=== PATIENT | female | born 1965 ===

== ENCOUNTER 2017-06-17 10:51 | Inpatient (IN) | payer BC ==
[2017-06-17 12:22] VITALS: BMI 38.4
[2017-06-17] MEDS ORDERED: HEPARIN-NS 5,000 UNITS/500 ML 5,000 UNIT/500 ML BAG IV ONE (13:04)
[2017-06-17] MEDS ORDERED: ceFAZolin 1 gm in NS 1 GM/100 ML BAG IVPB ONE (13:53)
[2017-06-17] MEDS: ceFAZolin 1 gm in NS 0 GM/0 ML BAG IVPB ONE ×2 (13:58→14:35)
[2017-06-17] MEDS ORDERED: Propofol 10 mg/ml Inj (20 ML) ONE ×2 (14:25→14:56)
[2017-06-17] MEDS ORDERED: Midazolam 2 MG/2 ML VIAL ONE (14:25)
[2017-06-17] MEDS ORDERED: Lidocaine 1% Inj (20ml) INFIL ONE (14:31)
[2017-06-17] MEDS ORDERED: Neostigmine Methylsulfate 3mg/3ml Syringe IV ONE (16:33)
[2017-06-17] MEDS ORDERED: Sodium Chloride 0.9% 1,000 ML IV SCH (16:45)
[2017-06-17] MEDS ORDERED: Oxycodone/Acetaminophen 5/325 mg Tab PO PRN (16:47)
[2017-06-17] MEDS: HYDROmorphone 0.5 mg/0.5 ml ISec IVP PRN ×2 (16:56→16:57)
[2017-06-17 18:46] VITALS: RESP 20
[2017-06-17] MEDS: Enoxaparin 30 mg Syringe SC SCH (22:58)
[2017-06-18] MEDS: (Novolin R) Insulin Human Regular 100 units/ml vial SC SCH ×3 (00:01→12:26)
--- NOTE | 2017-06-18 03:02 | OP ---
PROCEDURE DATE: 06/17/2017 PREOPERATIVE DIAGNOSIS: Chronic renal failure. POSTOPERATIVE DIAGNOSIS: Chronic renal failure. PROCEDURE PERFORMED: Left arm basilic vein transposition. SURGEON: Ceferino Shetty MD ANESTHESIA: General. BLOOD LOSS: 40 mL. POSTOPERATIVE CONDITION: Stable. INDICATIONS FOR SURGERY: This is a 52-year-old female with chronic renal failure, now undergoing left arm basilic vein transposition after preoperative vein management. GROSS FINDINGS: The basilic vein was split, so the mid portion was somewhat smaller, however, upon dilatation with pressurized saline, it dilated to an adequate size. At the conclusion of procedure, there was a nice thrill and bruit within the transposed basilic vein. DESCRIPTION OF PROCEDURE: The patient was taken to the operating room and general anesthesia was administered. The left arm was then prepped and draped. Incision was made in the left axilla and carried distally. The basilic vein was identified, dissected free. Through serial incisions, it was removed into the elbow. It was flushed with heparinized saline and marked with a marking pen and wrapped with wet saline gauze. The wounds were irrigated with saline. Advancement flap closures were performed by mobilizing his multiple layers of Monocryl, subcuticular Monocryl, and skin clips. An incision was made over the distal brachial artery, it was dissected free and looped with a vessel loop. Heparin was administered. A subcutaneous tunnel was created from the brachial incision to the axilla and the basilic vein was transposed beneath the skin and tunneled into the brachial and distal anastomosis accomplished using 6-0 Prolene suture. The wound was hemostatic. On removal of the clamps, there was a nice thrill on the vein. The wound was irrigated with saline. The brachial incision and axillary incision were closed with Monocryl and skin clips. The patient tolerated the procedure well, returned to recovery room in stable condition. Ceferino Shetty MD
[2017-06-18 08:05] VITALS: PULSE 98; TEMP 98.2; O2SAT 94
[2017-06-18 08:06] LABS: BASO % 0.1 % (0.0-2.0); HEMOGLOBIN 10.9 g/dL (11.0-16.0); LYMPH # 1.1 K/uL (1.0-4.3); LYMPH % 7.6 % (20.0-40.0); MEAN CELL VOLUME 85.1 fL (81.0-99.0); MEAN CORPUSCULAR HEMOGLOBIN 29.1 pg (27.0-31.0); MEAN CORPUSCULAR HGB CONC 34.2 g/dL (33.0-37.0); MEAN PLATELET VOLUME 9.1 fL (7.2-11.7); MONO # 0.2 K/uL (0.0-0.8); MONO % 1.8 % (0.0-10.0); NEUT # 12.6 K/uL (1.8-7.0); NEUT % 90.5 % (50.0-75.0); PLATELET COUNT 392 K/uL (130-400); RBC 3.74 Mil/uL (3.80-5.20); RED CELL DISTRIBUTION WIDTH 13.3 % (11.5-14.5); WHITE BLOOD COUNT 13.9 K/uL (4.8-10.8)
[2017-06-18 08:28] LABS: CALCIUM 8.4 mg/dl (8.6-10.4)
[2017-06-18 09:15] LABS: HYPOCHROMIC SLIGHT; LARGE PLATELETS PRESENT; LYMPHOCYTE 8 % (20-40); MONOCYTE 1 % (0-10); NEUTROPHIL 91 % (50-75); PLATELET ESTIMATE NORMAL (NORMAL); TOTAL CELLS COUNTED 100
[2017-06-18] MEDS: Enoxaparin 30 mg Syringe SC SCH ×2 (10:18→10:21)
[2017-06-18 12:21] VITALS: BP 141/76
--- NOTE | 2017-06-18 14:53 | CP.PCM.CON ---
History of Present Illness - History of Present Illness History of Present Illness: 52 y/o WF admitted for AV fistula creation. Complicated by high BSs >400. GFR has been < 15 and AV access was advised; not on dialysis yet. PMH: DIABETIC NEPHROPATHY CKD 5 HTN DL MULTIPLE SCLEROSIS PSH: AV FISTULA LEFT ANKLE REPAIR X 2 Review of Systems - Constitutional Constitutional: Fatigue, Weakness - EENT Eyes: absent: As Per HPI, Blind Spots, Blurred Vision, Change in Vision, Decreased Night Vision, Diplopia, Discharge, Dry Eye, Exophthalmos, Floaters, Irritation, Itchy Eyes, Loss of Peripheral Vision, Pain, Photophobia, Requires Corrective Lenses, Sees Flashes, Spots in Vision, Tunnel Vision, Other Visual Disturbances, Loss of Vision, Other Ears: absent: As Per HPI, Decreased Hearing, Ear Discharge, Ear Pain, Tinnitus, Abnormal Hearing, Disequilibrium, Dizziness, Other Nose/Mouth/Throat: absent: As Per HPI, Epistaxis, Nasal Congestion, Nasal Discharge, Nasal Obstruction, Nasal Trauma, Nose Pain, Post Nasal Drip, Sinus Pain, Sinus Pressure, Bleeding Gums, Change in Voice, Dental Pain, Dry Mouth, Dysphagia, Halitosis, Hoarsness, Lip Swelling, Mouth Lesions, Mouth Pain, Odynophagia, Sore Throat, Throat Swelling, Tongue Swelling, Facial Pain, Neck Pain, Neck Mass, Other - Cardiovascular Cardiovascular: Dyspnea on Exertion, Pedal Edema - Respiratory Respiratory: Cough, Dyspnea on Exertion - Gastrointestinal Gastrointestinal: Nausea - Genitourinary Genitourinary: As Per HPI - Musculoskeletal Musculoskeletal: Muscle Cramps, Muscle Weakness - Integumentary Integumentary: Dry Skin - Neurological Neurological: Focal Weakness, Weakness Past Patient History - Past Medical History & Family History Past Medical History?: Yes Past Family History: Reviewed and not pertinent - Past Social History Smoking Status: Former Smoker Chewing Tobacco Use: No Cigar Use: No Alcohol: None Drugs: Denies Home Situation {Lives}: With Family - CARDIAC Hx Cardiac Disorders: Yes Hx Hypercholesterolemia: Yes Hx Hypertension: Yes - PULMONARY Hx Respiratory Disorders: No - NEUROLOGICAL Hx Neurological Disorder: Yes Hx Multiple Sclerosis: Yes - HEENT Hx HEENT Problems: No - RENAL Hx Chronic Kidney Disease: Yes (Renal insufficiency) Hx Dialysis: No - ENDOCRINE/METABOLIC Hx Diabetes Mellitus Type 2: Yes - HEMATOLOGICAL/ONCOLOGICAL Hx Blood Disorders: Yes - INTEGUMENTARY Hx Dermatological Problems: No - MUSCULOSKELETAL/RHEUMATOLOGICAL Hx Arthritis: Yes (l ankle hx orif; toe prob) - GASTROINTESTINAL Hx Gastrointestinal Disorders: No (constipation) - GENITOURINARY/GYNECOLOGICAL Hx Genitourinary Disorders: No - PSYCHIATRIC Hx Psychophysiologic Disorder: No Hx Substance Use: No - SURGICAL HISTORY Hx Surgeries: Yes Hx Section: Yes (x2) Hx Open Reduction Internal Fixation: Yes (left ankle) Other/Comment: av shunt insertion 06/17/17 - ANESTHESIA Hx Anesthesia: Yes Hx Anesthesia Reactions: No Hx Malignant Hyperthermia: No Has any member of the family had a problem w/ anesthesia?: No Meds Allergies/Adverse Reactions: Allergies Allergy/AdvReac Type Severity Reaction Status Date / Time No Known Allergies Allergy Verified 11/04/14 15:00 - Medications Medications: Current Medications Docusate Sodium (Colace) 100 mg PO BID [facility] Last Admin: 06/18/17 10:18 Dose: 100 mg Enoxaparin Sodium (Lovenox) 30 mg SC 1000,2200 [facility] Last Admin: 06/18/17 10:21 Dose: Not Given Sodium Chloride (Sodium Chloride 0.9%) 1,000 mls @ 75 mls/hr IV .[id number] [facility] Cefazolin Sodium 1,000 mg/ (Sodium Chloride) 100 mls @ 100 mls/hr IVPB Q8H [facility] PRN Reason: Protocol Last Admin: 06/18/17 10:00 Dose: 100 mls/hr Insulin Human Regular (Novolin R) 0 unit SC ACHS [facility] PRN Reason: Protocol Last Admin: 06/18/17 12:26 Dose: 10 unit Oxycodone/Acetaminophen (Percocet 5/325 Mg Tab) 2 tab PO Q4H PRN PRN Reason: pain Stop: 06/20/17 16:48 Last Admin: 06/18/17 00:52 Dose: 2 tab Pneumococcal Polyvalent Vaccine (Pneumovax 23 Vaccine) 0.5 ml IM .ONCE ONE Stop: 06/19/17 08:01 Physical Exam - Constitutional Appears: No Acute Distress, Chronically Ill - Head Exam Head Exam: ATRAUMATIC, NORMAL INSPECTION - Eye Exam Eye Exam: EOMI, Normal appearance - Neck Exam Neck exam: Positive for: Normal Inspection. Negative for: Tenderness - Respiratory Exam Respiratory Exam: Clear to Auscultation Bilateral, NORMAL BREATHING PATTERN - Cardiovascular Exam Cardiovascular Exam: REGULAR RHYTHM, +S1 - GI/Abdominal Exam GI & Abdominal Exam: Soft. absent: Tenderness - Extremities Exam Extremities exam: Positive for: normal inspection. Negative for: tenderness - Neurological Exam Neurological exam: Alert, Oriented x3 - Skin Skin Exam: Dry, Warm Results - Vital Signs Recent Vital Signs: Last Vital Signs Temp 98.2 F 06/18/17 08:03 Pulse 98 H 06/18/17 08:03 Resp 20 06/18/17 08:03 BP 141/76 06/18/17 11:45 Pulse Ox 94 L 06/18/17 08:03 - Labs Result Diagrams: 06/18/17 07:57 06/18/17 07:57 Labs: Laboratory Results - last 24 hr 06/17/17 06/18/17 06/18/17 20:48 07:57 07:57 WBC 13.9 H RBC 3.74 L Hgb 10.9 L Hct 31.8 L MCV 85.1 MCH 29.1 MCHC 34.2 RDW 13.3 Plt Count 392 MPV 9.1 Neut % (Auto) 90.5 H Lymph % (Auto) 7.6 L [place] % (Auto) 1.8 Eos % (Auto) 0.0 Baso % (Auto) 0.1 Neut # (Auto) 12.6 H Lymph # (Auto) 1.1 [place] # (Auto) 0.2 Eos # (Auto) 0.0 Baso # (Auto) 0.0 Neutrophils % (Manual) 91 H Lymphocytes % (Manual) 8 L Monocytes % (Manual) 1 Platelet Estimate Normal Large Platelets Present Hypochromasia (manual) Slight Sodium 132 Potassium 4.6 Chloride 93 L Carbon Dioxide 23 Anion Gap 21 H BUN 73 H Creatinine 4.6 H Est GFR ( Amer) 12 Est GFR (Non-Af Amer) 10 POC Glucose (mg/dL) 398 H Random Glucose 499 H* D Calcium 8.4 L 06/18/17 08:08 WBC RBC Hgb Hct MCV MCH MCHC RDW Plt Count MPV Neut % (Auto) Lymph % (Auto) [place] % (Auto) Eos % (Auto) Baso % (Auto) Neut # (Auto) Lymph # (Auto) [place] # (Auto) Eos # (Auto) Baso # (Auto) Neutrophils % (Manual) Lymphocytes % (Manual) Monocytes % (Manual) Platelet Estimate Large Platelets Hypochromasia (manual) Sodium Potassium Chloride Carbon Dioxide Anion Gap BUN Creatinine Est GFR ( Amer) Est GFR (Non-Af Amer) POC Glucose (mg/dL) 400 H* Random Glucose Calcium Assessment & Plan (1) CKD (chronic kidney disease) stage 5, GFR less than 15 ml/min Status: Acute (2) Essential (primary) hypertension Status: Acute (3) Multiple sclerosis Status: Acute - Assessment and Plan (Free Text) Plan: control BSs likely discharge soon; plan on dialysis when AV F matures if uremia presents would need dialysis cath for dialysis initiation
[2017-06-19] MEDS ORDERED: Pneumococcal 23-Valent Vaccine IM ONE (08:00)
== END 2017-06-18 15:56 | disposition home or self-care (01) | DRG 982 ==
LOC: C.SDS 10:51 → C.9S 16:47 → C.3T 17:52
PROVIDERS: ADMIT Surgery; ATTEND Surgery
PROC: 05SC0ZZ Reposition Left Basilic Vein, Open Approach (ICD-10-PCS; principal; 2017-06-17 13:00)
DX: I12.0 Hypertensive chronic kidney disease with stage 5 chronic kidney disease or end stage renal disease (principal); N18.5 Chronic kidney disease, stage 5; E11.22 Type 2 diabetes mellitus with diabetic chronic kidney disease; E11.21 Type 2 diabetes mellitus with diabetic nephropathy; G35 Multiple sclerosis; E78.00 Pure hypercholesterolemia, unspecified; Z87.891 Personal history of nicotine dependence

== ENCOUNTER 2017-08-28 09:20 | Inpatient (IN) | payer BC ==
[2017-08-28 09:24] VITALS: BMI 36.8
[2017-08-28 10:12] LABS: BASO # 0.1 K/uL (0.0-0.2); BASO % 0.5 % (0.0-2.0); EOS # 0.2 K/uL (0.0-0.7); EOS % 2.2 % (0.0-4.0); HEMOGLOBIN 11.1 g/dL (11.0-16.0); LYMPH # 2.9 K/uL (1.0-4.3); LYMPH % 25.9 % (20.0-40.0); MEAN CORPUSCULAR HEMOGLOBIN 28.5 pg (27.0-31.0); MEAN CORPUSCULAR HGB CONC 34.9 g/dL (33.0-37.0); MEAN PLATELET VOLUME 8.7 fL (7.2-11.7); MONO # 0.6 K/uL (0.0-0.8); MONO % 5.4 % (0.0-10.0); NEUT # 7.3 K/uL (1.8-7.0); RBC 3.92 Mil/uL (3.80-5.20); RED CELL DISTRIBUTION WIDTH 12.6 % (11.5-14.5); WHITE BLOOD COUNT 11.1 K/uL (4.8-10.8)
[2017-08-28 10:14] LABS: MEAN CELL VOLUME 81.5 fL (81.0-99.0)
[2017-08-28 10:35] LABS: B-TYPE NATRIURETIC PEPTIDE 121 pg/mL (0-900); CK-MB 0.66 ng/mL (0.0-3.38)
[2017-08-28 10:39] LABS: ALB/GLOB RATIO 1.2 (1.0-2.1); ALBUMIN 4.1 g/dL (3.5-5.0); ALT/SGPT 23 U/L (9-52); AST/SGOT 19 U/L (14-36); BLOOD UREA NITROGEN 90 mg/dL (7-17); CALCIUM 9.6 mg/dl (8.6-10.4); GFR AFRICAN-AMERICAN 11; GFR NON-AFRICAN AMERICAN 9
--- NOTE | 2017-08-28 10:52 | RAD ---
HISTORY: SOB COMPARISON: Comparison made with chest radiograph dated 06/10/2017 TECHNIQUE: Chest PA and lateral FINDINGS: LUNGS: No active pulmonary disease. PLEURA: No significant pleural effusion identified. No pneumothorax apparent. CARDIOVASCULAR: Heart appears borderline enlarged. OSSEOUS STRUCTURES: No significant abnormalities. VISUALIZED UPPER ABDOMEN: Normal. OTHER FINDINGS: None. IMPRESSION: No active disease.
[2017-08-28] MEDS ORDERED: Sodium Chloride 0.9% 250 ML IV ONE ×2 (11:11→11:17)
[2017-08-28] MEDS ORDERED: (Novolin R) Insulin Human Regular 100 units/ml vial IV ONE (11:11)
[2017-08-28] MEDS ORDERED: (Novolin R) Insulin Human Regular 100 units/ml vial ONE (11:17)
--- NOTE | 2017-08-28 11:37 | CP.PCM.CON ---
History of Present Illness - History of Present Illness History of Present Illness: 52 y/o HF admitted with rising azotemia, inability to ambulate. s/p recent AV graft- 06/25 in anticipation of dialysis. Now GFR=9 PMH: DM 2 NEPHROTIC SYNDROME' HTN MULTIPLE SCLEROSIS PSH: AV GRAFT Review of Systems - Constitutional Constitutional: Lethargy, Weight Loss, Weakness - EENT Eyes: absent: As Per HPI, Blind Spots, Blurred Vision, Change in Vision, Decreased Night Vision, Diplopia, Discharge, Dry Eye, Exophthalmos, Floaters, Irritation, Itchy Eyes, Loss of Peripheral Vision, Pain, Photophobia, Requires Corrective Lenses, Sees Flashes, Spots in Vision, Tunnel Vision, Other Visual Disturbances, Loss of Vision, Other Ears: absent: As Per HPI, Decreased Hearing, Ear Discharge, Ear Pain, Tinnitus, Abnormal Hearing, Disequilibrium, Dizziness, Other Nose/Mouth/Throat: absent: As Per HPI, Epistaxis, Nasal Congestion, Nasal Discharge, Nasal Obstruction, Nasal Trauma, Nose Pain, Post Nasal Drip, Sinus Pain, Sinus Pressure, Bleeding Gums, Change in Voice, Dental Pain, Dry Mouth, Dysphagia, Halitosis, Hoarsness, Lip Swelling, Mouth Lesions, Mouth Pain, Odynophagia, Sore Throat, Throat Swelling, Tongue Swelling, Facial Pain, Neck Pain, Neck Mass, Other - Cardiovascular Cardiovascular: Dyspnea on Exertion, Lightheadedness - Respiratory Respiratory: Dyspnea on Exertion - Gastrointestinal Gastrointestinal: Nausea - Genitourinary Genitourinary: As Per HPI - Musculoskeletal Musculoskeletal: Abnormal Gait, Muscle Cramps, Muscle Weakness, Myalgias - Neurological Neurological: Weakness Past Patient History - Past Medical History & Family History Past Medical History?: Yes - Past Social History Smoking Status: Former Smoker Chewing Tobacco Use: No Cigar Use: No Alcohol: None Drugs: Denies Home Situation {Lives}: With Family - CARDIAC Hx Cardiac Disorders: Yes Hx Hypercholesterolemia: Yes Hx Hypertension: Yes - PULMONARY Hx Respiratory Disorders: No - NEUROLOGICAL Hx Neurological Disorder: Yes Hx Multiple Sclerosis: Yes - HEENT Hx HEENT Problems: No - RENAL Hx Chronic Kidney Disease: Yes (Renal insufficiency) Hx Dialysis: No - ENDOCRINE/METABOLIC Hx Diabetes Mellitus Type 2: Yes - HEMATOLOGICAL/ONCOLOGICAL Hx Blood Disorders: Yes - INTEGUMENTARY Hx Dermatological Problems: No - MUSCULOSKELETAL/RHEUMATOLOGICAL Hx Musculoskeletal Disorders: Yes Hx Arthritis: Yes (l ankle hx orif; toe prob) - GASTROINTESTINAL Hx Gastrointestinal Disorders: No (constipation) - GENITOURINARY/GYNECOLOGICAL Hx Genitourinary Disorders: No - PSYCHIATRIC Hx Psychophysiologic Disorder: No Hx Substance Use: No - SURGICAL HISTORY Hx Surgeries: Yes Hx Section: Yes (x2) Hx Open Reduction Internal Fixation: Yes (left ankle) Other/Comment: av shunt insertion 06/17/17 - ANESTHESIA Hx Anesthesia: Yes Hx Anesthesia Reactions: No Hx Malignant Hyperthermia: No Meds Allergies/Adverse Reactions: Allergies Allergy/AdvReac Type Severity Reaction Status Date / Time No Known Allergies Allergy Verified 08/28/17 09:23 - Medications Medications: Current Medications Sodium Chloride (Sodium Chloride 0.9%) 250 mls @ 250 mls/hr IV .Q1H ONE Stop: 08/28/17 12:10 Last Admin: 08/28/17 11:20 Dose: 250 mls/hr Physical Exam - Constitutional Appears: No Acute Distress, Chronically Ill - Head Exam Head Exam: ATRAUMATIC, NORMAL INSPECTION - Eye Exam Eye Exam: EOMI, Normal appearance - Neck Exam Neck exam: Positive for: Normal Inspection. Negative for: Tenderness - Respiratory Exam Respiratory Exam: Clear to Auscultation Bilateral, NORMAL BREATHING PATTERN - Cardiovascular Exam Cardiovascular Exam: REGULAR RHYTHM, +S1 - GI/Abdominal Exam GI & Abdominal Exam: Soft. absent: Tenderness - Extremities Exam Extremities exam: Positive for: normal inspection. Negative for: tenderness - Neurological Exam Neurological exam: CN II-XII Intact, Oriented x3 - Skin Skin Exam: Dry, Warm Results - Vital Signs Recent Vital Signs: Last Vital Signs Temp 98.6 F 08/28/17 09:24 Pulse 81 08/28/17 09:24 Resp 18 08/28/17 09:35 BP 138/69 08/28/17 09:24 Pulse Ox 100 08/28/17 09:35 - Labs Result Diagrams: 08/28/17 10:05 08/28/17 10:05 Labs: Laboratory Results - last 24 hr 08/28/17 08/28/17 10:05 10:05 WBC 11.1 H RBC 3.92 Hgb 11.1 Hct 31.9 L MCV 81.5 D MCH 28.5 MCHC 34.9 RDW 12.6 Plt Count 391 MPV 8.7 Neut % (Auto) 66.0 Lymph % (Auto) 25.9 [place] % (Auto) 5.4 Eos % (Auto) 2.2 Baso % (Auto) 0.5 Neut # (Auto) 7.3 H Lymph # (Auto) 2.9 [place] # (Auto) 0.6 Eos # (Auto) 0.2 Baso # (Auto) 0.1 Sodium 132 Potassium 3.2 L Chloride 85 L Carbon Dioxide 31 H Anion Gap 20 BUN 90 H Creatinine 4.9 H Est GFR ( Amer) 11 Est GFR (Non-Af Amer) 9 Random Glucose 489 H* Calcium 9.6 Total Bilirubin 0.4 AST 19 ALT 23 Alkaline Phosphatase 201 H Total Creatine Kinase 101 CK-MB (Mass) 0.66 Troponin I < 0.0120 NT-Pro-B Natriuret Pep 121 Total Protein 7.5 Albumin 4.1 Globulin 3.4 Albumin/Globulin Ratio 1.2 Assessment & Plan (1) Type 2 diabetes mellitus with diabetic nephropathy Status: Acute (2) End stage renal disease Status: Acute (3) Nephrotic syndrome Status: Acute (4) Multiple sclerosis Status: Acute - Assessment and Plan (Free Text) Plan: Unclear if symptoms are from MS vs uremia GFR very low and will initiate dialysis recommend neuro eval
--- NOTE | 2017-08-28 12:13 | C.PDOC ---
History Of Present Illness 52 year old female, whose PMHx includes Diabetes, Hypertension, and Multiple Sclerosis, presents to the ED for evaluation of shortness of breath which began one week ago. Patient states her symptoms are not constant, but occur when she exerts herself, even when "talking a lot." Patient admits she does not regulaly check her sugar level. Patient spoke to her Stave Cutting Supervisor, Dr. Smith, who instructed her to present to the ED for further evaluation. She denies fever, chills, chest pain, abdominal pain, leg pain/swelling . Time Seen by Provider: 08/28/17 09:33 Chief Complaint (Nursing): Shortness Of Breath History Per: Patient History/Exam Limitations: no limitations Onset/Duration Of Symptoms: Days (one week ), Intermittent Episodes Current Symptoms Are (Timing): Still Present Quality: denies: "Pain" Exacerbating Factor(s): Exertion Current Respiratory Medications: See Home Med List Associated Symptoms: denies: Fever, Chills, Chest Pain Additional History Per: Patient Past Medical History Reviewed: Historical Data, Nursing Documentation, Vital Signs Vital Signs: Last Vital Signs Temp 98.1 F 08/28/17 16:07 Pulse 76 08/28/17 16:07 Resp 20 08/28/17 16:07 BP 137/69 08/28/17 16:07 Pulse Ox 96 08/28/17 16:07 - Medical History PMH: Arthritis (l ankle hx orif; toe prob), Diabetes, Fractures (left ankle), HTN, Hypercholesterolemia, Multiple Sclerosis, Peripheral Edema (not at present) , Chronic Kidney Disease (Renal insufficiency) Surgical History: No Surg Hx Family History: States: Unknown Family Hx - Social History Hx Alcohol Use: No Hx Substance Use: No - Immunization History Hx Tetanus Toxoid Vaccination: No Hx Influenza Vaccination: No Hx Pneumococcal Vaccination: No Review Of Systems Constitutional: Negative for: Fever, Chills Cardiovascular: Negative for: Chest Pain Respiratory: Positive for: Shortness of Breath Gastrointestinal: Negative for: Abdominal Pain Musculoskeletal: Negative for: Leg Pain Skin: Negative for: Other (leg swelling ) Physical Exam - Physical Exam Appears: Non-toxic, No Acute Distress, Other (obese ) Skin: Normal Color, Warm, Dry Head: Atraumatic, Normacephalic Eye(s): bilateral: Normal Inspection, EOMI Nose: Normal Oral Mucosa: Moist Neck: Normal ROM, Supple Chest: Symmetrical, No Deformity, No Tenderness Cardiovascular: Rhythm Regular Respiratory: Normal Breath Sounds, No Rales, No Rhonchi, No Wheezing, Other ( speaking in full sentences) Gastrointestinal/Abdominal: Soft, No Tenderness Extremity: Normal ROM, Capillary Refill (less than 2 seconds ), No Swelling, Other ((+) av shunt with pulse) Extremity: Bilateral: Normal Color And Temperature Neurological/Psych: Oriented x3, Normal Speech, Normal Cognition ED Course And Treatment - Laboratory Results Result Diagrams: 08/28/17 10:05 08/28/17 10:05 ECG: Interpreted By Me, Viewed By Me ECG Rhythm: Sinus Rhythm Interpretation Of ECG: Normal Sinus Rhythm at rate 73bpm. Non-specific changes noted. Rate From EC O2 Sat by Pulse Oximetry: 100 (on RA) Pulse Ox Interpretation: Normal - Other Rad CXR X-Ray: Interpreted by Me, Viewed By Me, Read By Radiologist Interpretation: HISTORY: SOB. COMPARISON: Comparison made with chest radiograph dated 06/10/2017. TECHNIQUE: Chest PA and lateral. FINDINGS: LUNGS: No active pulmonary disease. PLEURA: No significant pleural effusion identified. No pneumothorax apparent. CARDIOVASCULAR: Heart appears borderline enlarged. OSSEOUS STRUCTURES: No significant abnormalities. VISUALIZED UPPER ABDOMEN: Normal. OTHER FINDINGS: None. IMPRESSION: No active disease. Progress Note: Bloodwork, CXR, EKG ordered and reviewed. Insulin IV and IV Fluids administered. Case discussed with Dr. Smith, who instructs admission for first time dialysis. Case discussed with Dr. Manzano, who agrees upon admission. Disposition - Disposition Disposition: HOSPITALIZED Disposition Time: 11:00 Condition: STABLE - Clinical Impression Clinical Impression: SOB (shortness of breath), End stage renal disease - PA / HEARING IMPAIRED TEACHER / Resident Statement MD/DO has reviewed & agrees with the documentation as recorded. - Scribe Statement The provider has reviewed the documentation as recorded by the Scribe (Veronika Davis) All medical record entries made by the Scribe were at my direction and personally dictated by me. I have reviewed the chart and agree that the record accurately reflects my personal performance of the history, physical exam, medical decision making, and the department course for this patient. I have also personally directed, reviewed, and agree with the discharge instructions and disposition.
[2017-08-28 13:37] LABS: HEPATITIS B SURFACE AG Negative (NEGATIVE)
[2017-08-28 13:42] LABS: FERRITIN 67.7 ng/mL; HEPATITIS B CORE AB NEGATIVE (NEGATIVE)
--- NOTE | 2017-08-28 13:45 | CP.PCM.HP ---
History of Present Illness - History of Present Illness History of Present Illness: COMPREHENSIVE HISTORY & PHYSICAL EXAM HPI Patient presented to [facility] emergency room with complaints of shortness of breath. Patient has a chronic kidney disease stage V secondary to diabetic nephropathy and few months ago patient had an AV shunt placed and patient is going to begin her dialysis on this admission. Primary work in the emergency room shows normal BNP and chest x-ray showed no infiltrates or CHF. Patient has a history of diabetes type 2 and hypertension. There is no history of coronary artery disease CHF in the past. Patient has a history of multiple sclerosis. PAST HIST. PERSONAL HIST: Smoking. N Alcohol. N Allergy N Travel_- . FAMILY HIST : ROS : usage of assist device. Eyes: Negative for redness, swelling, itching, discharge, vision changes, blurry vision, double vision, glaucoma, cataracts, Ears: Negative for hearing loss, ringing, , tinnitus, vertigo Nose: Negative for rhinorrhea, stuffiness, sniffing, itching, postnasal drip, discoloration, nasal congestion and epistaxis. Throat: Negative for throat clearing, sore throat, hoarseness, difficulty swallowing and difficulty speaking. Respiratory: Negative for cough, , sputum production, chest tightness, pleuritic chest pain ,daytime somnolence, chronic cough, hemoptysis, snoring at night, Cardiovascular: Negative for chest pain, palpitationsEdema of legs, leg cramps , angina, claudication, , irregular heartbeat, Neurology: Negative for irritability, muscle weakness, numbness and tingling, seizures, tremors, migraines, slurred speech, syncope, memory loss, mood changes , recurrent headaches Gastrointestinal: Negative for difficulty swallowing, diarrhea, constipation, black stools, rectal bleeding, nausea, flatulence, reflux, poor appetite, changes in bowel habits, abdominal pain Genitourinary: Negative for frequent urination, hematuria, discharge, incontinence, urinary retention, frequent UTI, Psychiatric: Negative for depression, anxiety/panic, suicidal tendencies, Musculoskeletal: Negative for swollen joints, back pain, , neck pain, morning stiffness of joints, . Skin: Negative for rash, ulcers, itching, dry skin and pigmented lesions. P/E: Constitutional: Appears stated age and in no apparent distress. Head: Normocephalic. Ears: External ear canals patent without inflammation. Tympanic membranes intact with normal light reflex and landmark. Eyes: Pupils are central, bilaterally equal, symmetrical and reacts to light with normal movements and no icterus or pallor. Nose: External nares are patent. Mucosa is pink Mouth-Throat: Good general appearance and condition. No post-pharyngeal/oropharyngeal erythema and tonsillar hypertrophy. Good dental hygiene. Neck-Lymphatic: Neck is supple with normal ROM, no thyromegaly, lymph nodes or masses. JVD is normal with no carotid bruit. Lungs: Clear to percussion and auscultation with bilateral normal air entry. Cardiovascular: S1 and S2 are normal with no murmurs, gallops and rub. GI Exam: No hepatomegaly. Abdomen is soft and non-tender. No Organomegaly , masses or hernias are evident and bowel sounds are normal and active. Neurology: Higher function and all cranial nerves intact, with no gross motor or sensory deficit. Superficial and deep reflexes are normal with downwards planters. No cerebellar deficit with normal gait. Musculoskeletal: No tender spots with normal curvature of the spine with no swelling or restricted ROM of the small and large joints. Extremities: Homans sign absent. Intact pulses with no pitting edema, calf tenderness or skin color changes. Skin: No rash, eruptions or abnormal skin pigmentation LAB/RADIOLOGY: ASSESMENT : Chronic kidney disease stage V secondary to diabetic nephropathy for first-time hemodialysis. Shortness of breath etiology to be determined Type 2 diabetes PLAN: See orders Present on Admission - Present on Admission Any Indicators Present on Admission: No Past Patient History - Past Medical History & Family History Past Medical History?: Yes - Past Social History Smoking Status: Former Smoker Chewing Tobacco Use: No Cigar Use: No Alcohol: None Drugs: Denies Home Situation {Lives}: With Family - CARDIAC Hx Hypercholesterolemia: Yes Hx Hypertension: Yes Hx Peripheral Edema: Yes (not at present) - PULMONARY Hx Respiratory Disorders: No - NEUROLOGICAL Hx Multiple Sclerosis: Yes - HEENT Hx HEENT Problems: No - RENAL Hx Chronic Kidney Disease: Yes (Renal insufficiency) - ENDOCRINE/METABOLIC Hx Diabetes Mellitus Type 2: Yes - HEMATOLOGICAL/ONCOLOGICAL Hx Blood Disorders: Yes - INTEGUMENTARY Hx Dermatological Problems: No - MUSCULOSKELETAL/RHEUMATOLOGICAL Hx Arthritis: Yes (l ankle hx orif; toe prob) Hx Fractures: Yes (left ankle) - GASTROINTESTINAL Hx Gastrointestinal Disorders: No (constipation) - GENITOURINARY/GYNECOLOGICAL Hx Genitourinary Disorders: No - PSYCHIATRIC Hx Substance Use: No - SURGICAL HISTORY Hx Surgeries: Yes Hx Section: Yes (x2) Hx Open Reduction Internal Fixation: Yes (left ankle) Other/Comment: av shunt insertion 06/17/17 - ANESTHESIA Hx Anesthesia: Yes Hx Anesthesia Reactions: No Hx Malignant Hyperthermia: No Meds Allergies/Adverse Reactions: Allergies Allergy/AdvReac Type Severity Reaction Status Date / Time No Known Allergies Allergy Verified 08/28/17 09:23 Results - Vital Signs Recent Vital Signs: Last Vital Signs Temp 98 F 08/28/17 12:47 Pulse 80 08/28/17 12:47 Resp 18 08/28/17 12:47 BP 150/73 08/28/17 12:47 Pulse Ox 100 08/28/17 13:37 - Labs Result Diagrams: 08/28/17 10:05 08/28/17 10:05 Labs: Laboratory Results - last 24 hr 08/28/17 08/28/17 08/28/17 10:05 10:05 12:08 WBC 11.1 H RBC 3.92 Hgb 11.1 Hct 31.9 L MCV 81.5 D MCH 28.5 MCHC 34.9 RDW 12.6 Plt Count 391 MPV 8.7 Neut % (Auto) 66.0 Lymph % (Auto) 25.9 Montgomery % (Auto) 5.4 Eos % (Auto) 2.2 Baso % (Auto) 0.5 Neut # (Auto) 7.3 H Lymph # (Auto) 2.9 Montgomery # (Auto) 0.6 Eos # (Auto) 0.2 Baso # (Auto) 0.1 Sodium 132 Potassium 3.2 L Chloride 85 L Carbon Dioxide 31 H Anion Gap 20 BUN 90 H Creatinine 4.9 H Est GFR ( Amer) 11 Est GFR (Non-Af Amer) 9 POC Glucose (mg/dL) Random Glucose 489 H* Calcium 9.6 Phosphorus 5.3 H % Saturation Total Bilirubin 0.4 AST 19 ALT 23 Alkaline Phosphatase 201 H Total Creatine Kinase 101 CK-MB (Mass) 0.66 Troponin I < 0.0120 NT-Pro-B Natriuret Pep 121 Total Protein 7.5 Albumin 4.1 Globulin 3.4 Albumin/Globulin Ratio 1.2 Hep Bs Antigen Negative Hep Bs Antibody 08/28/17 08/28/17 08/28/17 12:08 12:08 12:21 WBC RBC Hgb Hct MCV MCH MCHC RDW Plt Count MPV Neut % (Auto) Lymph % (Auto) Montgomery % (Auto) Eos % (Auto) Baso % (Auto) Neut # (Auto) Lymph # (Auto) Montgomery # (Auto) Eos # (Auto) Baso # (Auto) Sodium Potassium Chloride Carbon Dioxide Anion Gap BUN Creatinine Est GFR ( Amer) Est GFR (Non-Af Amer) POC Glucose (mg/dL) 334 H Random Glucose Calcium Phosphorus % Saturation 19 L Total Bilirubin AST ALT Alkaline Phosphatase Total Creatine Kinase CK-MB (Mass) Troponin I NT-Pro-B Natriuret Pep Total Protein Albumin Globulin Albumin/Globulin Ratio Hep Bs Antigen Hep Bs Antibody Negative
[2017-08-28 13:54] LABS: HEPATITIS C ANTIBODY NEGATIVE (NEGATIVE)
[2017-08-28 16:07] VITALS: RESP 20
[2017-08-28] MEDS ORDERED: (Novolin R) Insulin Human Regular 100 units/ml vial SC SCH (16:30)
--- NOTE | 2017-08-28 16:42 | CP.PCM.CON ---
Past Patient History - Past Medical History & Family History Past Medical History?: Yes - Past Social History Smoking Status: Former Smoker Chewing Tobacco Use: No Cigar Use: No Alcohol: None Drugs: Denies Home Situation {Lives}: With Family - CARDIAC Hx Hypercholesterolemia: Yes Hx Hypertension: Yes Hx Peripheral Edema: Yes (not at present) - PULMONARY Hx Respiratory Disorders: No - NEUROLOGICAL Hx Multiple Sclerosis: Yes - HEENT Hx HEENT Problems: No - RENAL Hx Chronic Kidney Disease: Yes (Renal insufficiency) - ENDOCRINE/METABOLIC Hx Diabetes Mellitus Type 2: Yes - HEMATOLOGICAL/ONCOLOGICAL Hx Blood Disorders: Yes - INTEGUMENTARY Hx Dermatological Problems: No - MUSCULOSKELETAL/RHEUMATOLOGICAL Hx Arthritis: Yes (l ankle hx orif; toe prob) Hx Fractures: Yes (left ankle) - GASTROINTESTINAL Hx Gastrointestinal Disorders: No (constipation) - GENITOURINARY/GYNECOLOGICAL Hx Genitourinary Disorders: No - PSYCHIATRIC Hx Substance Use: No - SURGICAL HISTORY Hx Surgeries: Yes Hx Section: Yes (x2) Hx Open Reduction Internal Fixation: Yes (left ankle) Other/Comment: av shunt insertion 06/17/17 - ANESTHESIA Hx Anesthesia: Yes Hx Anesthesia Reactions: No Hx Malignant Hyperthermia: No Meds Allergies/Adverse Reactions: Allergies Allergy/AdvReac Type Severity Reaction Status Date / Time No Known Allergies Allergy Verified 08/28/17 09:23 - Medications Medications: Current Medications Amlodipine Besylate (Norvasc) 5 mg PO DAILY [facility] Aspirin (Aspirin Chewable) 81 mg PO DAILY [facility] Calcitriol (Rocaltrol) 0.25 mcg PO DAILY [facility] Calcium Acetate (Phoslo) 667 mg PO TIDCC [facility] Carvedilol (Coreg) 25 mg PO BID [facility] Furosemide (Lasix) 40 mg PO BID [facility] Glipizide (Glucotrol) 10 mg PO BIDAC [facility] Home Med (Cu/Se/Vit A/Vit C/Vit E/Zinc [Ocuvite]) 1 tab PO DAILY [facility] Home Med (Magnesium [Magnesium]) 5,000 mg PO DAILY [facility] Insulin Human Regular (Novolin R) [address] [facility] PRN Reason: Protocol Metolazone (Zaroxolyn) 2.5 mg PO DAILY [facility] [id number] Ethyl Esters (Lovaza) 1 gm PO QID [facility] Rosuvastatin Calcium (Crestor) 20 mg PO HS [facility] Results - Vital Signs Recent Vital Signs: Last Vital Signs Temp 98.1 F 08/28/17 16:07 Pulse 76 08/28/17 16:07 Resp 20 08/28/17 16:07 BP 137/69 08/28/17 16:07 Pulse Ox 96 08/28/17 16:07 - Labs Result Diagrams: 08/28/17 10:05 08/28/17 10:05 Labs: Laboratory Results - last 24 hr 08/28/17 08/28/17 08/28/17 10:05 10:05 12:08 WBC 11.1 H RBC 3.92 Hgb 11.1 Hct 31.9 L MCV 81.5 D MCH 28.5 MCHC 34.9 RDW 12.6 Plt Count 391 MPV 8.7 Neut % (Auto) 66.0 Lymph % (Auto) 25.9 Mcintosh % (Auto) 5.4 Eos % (Auto) 2.2 Baso % (Auto) 0.5 Neut # (Auto) 7.3 H Lymph # (Auto) 2.9 Mcintosh # (Auto) 0.6 Eos # (Auto) 0.2 Baso # (Auto) 0.1 Sodium 132 Potassium 3.2 L Chloride 85 L Carbon Dioxide 31 H Anion Gap 20 BUN 90 H Creatinine 4.9 H Est GFR ( Amer) 11 Est GFR (Non-Af Amer) 9 POC Glucose (mg/dL) Random Glucose 489 H* Calcium 9.6 Phosphorus 5.3 H % Saturation Ferritin 67.7 Total Bilirubin 0.4 AST 19 ALT 23 Alkaline Phosphatase 201 H Total Creatine Kinase 101 CK-MB (Mass) 0.66 Troponin I < 0.0120 NT-Pro-B Natriuret Pep 121 Total Protein 7.5 Albumin 4.1 Globulin 3.4 Albumin/Globulin Ratio 1.2 Hep Bs Antigen Negative Hep Bs Antibody Hep B Core IgM Ab Negative Hepatitis C Antibody Negative 08/28/17 08/28/17 08/28/17 12:08 12:08 12:21 WBC RBC Hgb Hct MCV MCH MCHC RDW Plt Count MPV Neut % (Auto) Lymph % (Auto) Mcintosh % (Auto) Eos % (Auto) Baso % (Auto) Neut # (Auto) Lymph # (Auto) Mcintosh # (Auto) Eos # (Auto) Baso # (Auto) Sodium Potassium Chloride Carbon Dioxide Anion Gap BUN Creatinine Est GFR ( Amer) Est GFR (Non-Af Amer) POC Glucose (mg/dL) 334 H Random Glucose Calcium Phosphorus % Saturation 19 L Ferritin Total Bilirubin AST ALT Alkaline Phosphatase Total Creatine Kinase CK-MB (Mass) Troponin I NT-Pro-B Natriuret Pep Total Protein Albumin Globulin Albumin/Globulin Ratio Hep Bs Antigen Hep Bs Antibody Negative Hep B Core IgM Ab Hepatitis C Antibody 08/28/17 16:16 WBC RBC Hgb Hct MCV MCH MCHC RDW Plt Count MPV Neut % (Auto) Lymph % (Auto) Mcintosh % (Auto) Eos % (Auto) Baso % (Auto) Neut # (Auto) Lymph # (Auto) Mcintosh # (Auto) Eos # (Auto) Baso # (Auto) Sodium Potassium Chloride Carbon Dioxide Anion Gap BUN Creatinine Est GFR ( Amer) Est GFR (Non-Af Amer) POC Glucose (mg/dL) 354 H Random Glucose Calcium Phosphorus % Saturation Ferritin Total Bilirubin AST ALT Alkaline Phosphatase Total Creatine Kinase CK-MB (Mass) Troponin I NT-Pro-B Natriuret Pep Total Protein Albumin Globulin Albumin/Globulin Ratio Hep Bs Antigen Hep Bs Antibody Hep B Core IgM Ab Hepatitis C Antibody Assessment & Plan - Assessment and Plan (Free Text) Assessment: I have assessed the patient's left AV shunt. There is no thrill however there is a strong pulse. This can be either from thrombosis or distal stenosis. I will recommend a vascular ultrasound for the shunt to identify the underlying condition. Intervention will be planned according to the findings of the ultrasound. I have spoken with Dr. Smith about this case who agrees with the course of treatment. - Date & Time Date: 08/28/17 Time: 16:30
[2017-08-28] MEDS: Omega-3-Acid Ethyl Esters 1 GM Cap PO SCH ×2 (17:17→22:19)
[2017-08-28] MEDS: (Novolin R) Insulin Human Regular 100 units/ml vial SC SCH (22:14)
[2017-08-28] MEDS ORDERED: Potassium Chloride 10 mEq ER Tab PO ONE (22:15)
[2017-08-28] MEDS ORDERED: (Novolin R) Insulin Human Regular 100 units/ml vial SC ONE (22:15)
[2017-08-29] MEDS: (Novolin R) Insulin Human Regular 100 units/ml vial SC SCH ×2 (08:25→12:16)
[2017-08-29 09:50] VITALS: PULSE 74
[2017-08-29] MEDS ORDERED: VIT E PO SCH (10:00)
[2017-08-29] MEDS ORDERED: MAGNESIUM PO SCH (10:00)
[2017-08-29] MEDS ORDERED: metOLazone 2.5 MG TAB PO SCH (10:00)
[2017-08-29] MEDS ORDERED: ZINC PO SCH (10:00)
[2017-08-29] MEDS ORDERED: VIT A PO SCH (10:00)
[2017-08-29] MEDS ORDERED: [UNRECOGNIZED DRUG - OTHER] PO SCH (10:00)
[2017-08-29] MEDS ORDERED: VIT C PO SCH (10:00)
[2017-08-29] MEDS: Omega-3-Acid Ethyl Esters 1 GM Cap PO SCH ×2 (10:46→13:32)
[2017-08-29 11:28] LABS: PROTHROMBIN TIME 11.1 SECONDS (9.7-12.2)
--- NOTE | 2017-08-29 11:32 | US ---
Left upper extremity AV shunt study History: Thrombosed left upper extremity AV shunt. Comparison: Comparison is made to vascular study of left after extremity veins from 06/11/2017. Technique: Ultrasound images with color Doppler performed on the left upper extremity AV shunt. Findings: Echogenic thrombus seen within the left upper extremity AV shunt. Patent inflow artery. Occluded outflow vein. The venous anastomosis it is approximately localized. The outflow vein is approximately 2 millimeters in diameter. Discussed with Dr. Shetty. Impression: Thrombosed left upper extremity AV shunt. Inflow artery patent.
--- NOTE | 2017-08-29 13:53 | CP.PCM.PN ---
Subjective - Date & Time of Evaluation Date of Evaluation: 08/29/17 Time of Evaluation: 13:51 - Subjective Subjective: CHIEF COMPLAINTS TODAY : Currently patient has no complaints. No shortness of breath no chest pain Ultrasound of the AV shunt shows thrombosed vein but patent artery, patient is now in the cath room for removal of a thrombus ROS. HEENT : N. Resp : No cough, wheezing ,pleuritic CP ,or hemoptysis Cardio : No anginal CP, PND, orthopnea, palpitation GI : No abd.pain, n/v ,diarrhea or GI bleeding . [employer] : No headache, vertigo, focal deficit. Musculoskel : No joint swelling , Derm : No rash Psych : Normal affect. Ext : No swelling ,calf pain PE. Pt. is alert awake in no distress. V.S As noted in the chart Head ,ear nose,throat and eyes : Normal. Neck : Supple with normal carotids. Lungs: Clear air entry. Heart : S1 & S2 normal with S4. No murmur. Abd : Soft non tender with normal bowel sounds. Neuro : Moves all ext. with no localized deficit. Ext : No edema with intact pulses.Non tender calves Derm : No rashes or decubitus ulcer. LABS/RADIOLOGY: ASSESSMENT/PLAN : Patient in the cath room for thrombectomy. Objective - Vital Signs/Intake and Output Vital Signs (last 24 hours): Temp Pulse Resp BP Pulse Ox 97.6 F 74 20 119/67 96 08/29/17 08:00 08/29/17 08:00 08/29/17 08:00 08/29/17 10:46 08/29/17 08:00 - Medications Medications: Current Medications Amlodipine Besylate (Norvasc) 5 mg PO DAILY [facility] Last Admin: 08/29/17 10:46 Dose: 5 mg Aspirin (Aspirin Chewable) 81 mg PO DAILY [facility] Last Admin: 08/29/17 12:15 Dose: 81 mg Calcitriol (Rocaltrol) 0.25 mcg PO DAILY [facility] Last Admin: 08/29/17 10:46 Dose: 0.25 mcg Calcium Acetate (Phoslo) 667 mg PO TIDCC [facility] Last Admin: 08/29/17 12:15 Dose: 667 mg Carvedilol (Coreg) 25 mg PO BID [facility] Last Admin: 08/29/17 10:46 Dose: 25 mg Furosemide (Lasix) 40 mg PO BID [facility] Last Admin: 08/29/17 10:45 Dose: 40 mg Glipizide (Glucotrol) 10 mg PO BIDAC [facility] Last Admin: 08/29/17 08:25 Dose: 10 mg Home Med (Cu/Se/Vit A/Vit C/Vit E/Zinc [Ocuvite]) 1 tab PO DAILY [facility] Home Med (Magnesium [Magnesium]) 5,000 mg PO DAILY [facility] Insulin Human Regular (Novolin R) 0 unit SC ACHS [facility] PRN Reason: Protocol Last Admin: 08/29/17 12:16 Dose: 8 unit Metolazone (Zaroxolyn) 2.5 mg PO DAILY [facility] Last Admin: 08/29/17 10:46 Dose: 2.5 mg [id number] Ethyl Esters (Lovaza) 1 gm PO QID [facility] Last Admin: 08/29/17 13:32 Dose: 1 gm Rosuvastatin Calcium (Crestor) 20 mg PO HS [facility] - Labs Labs: 08/28/17 10:05 08/28/17 10:05 PT 11.1 SECONDS (9.7-12.2) 08/29/17 11:18 INR 1.0 08/29/17 11:18
--- NOTE | 2017-08-29 15:14 | CP.PCM.PN ---
Subjective - Date & Time of Evaluation Date of Evaluation: 08/29/17 Time of Evaluation: 15:09 - Subjective Subjective: events noted, AV access- advised it was AV fistula- was thrombosed and dialysis unsuccessful 08/28 seen by IR- agrees with thrombosis dx, has poor vein runoff from fistula seen by surgery- pt will need new AV graft. pt wants to go home and be re-admitted for dialysis next week uremia seems moderate and patient can return next week for dialysis will need permcath and AV graft next week patient upset, but no fevers, n, v, chills, SOB claims to be ambulating well BSs elevated insulin given Objective - Vital Signs/Intake and Output Vital Signs (last 24 hours): Temp Pulse Resp BP Pulse Ox 97.6 F 74 20 119/67 96 08/29/17 08:00 08/29/17 08:00 08/29/17 08:00 08/29/17 10:46 08/29/17 08:00 - Medications Medications: Current Medications Amlodipine Besylate (Norvasc) 5 mg PO DAILY [facility] Last Admin: 08/29/17 10:46 Dose: 5 mg Aspirin (Aspirin Chewable) 81 mg PO DAILY [facility] Last Admin: 08/29/17 12:15 Dose: 81 mg Calcitriol (Rocaltrol) 0.25 mcg PO DAILY [facility] Last Admin: 08/29/17 10:46 Dose: 0.25 mcg Calcium Acetate (Phoslo) 667 mg PO TIDCC [facility] Last Admin: 08/29/17 12:15 Dose: 667 mg Carvedilol (Coreg) 25 mg PO BID [facility] Last Admin: 08/29/17 10:46 Dose: 25 mg Furosemide (Lasix) 40 mg PO BID [facility] Last Admin: 08/29/17 10:45 Dose: [facility] Admin: 08/29/17 08:25 Dose: 10 mg Home Med (Cu/Se/Vit A/Vit C/Vit E/Zinc [Ocuvite]) 1 tab PO DAILY [facility] Home Med (Magnesium [Magnesium]) 5,000 mg PO DAILY [facility] Insulin Human Regular (Novolin R) 0 unit SC ACHS [facility] PRN Reason: Protocol Last Admin: 08/29/17 12:16 Dose: 8 unit Metolazone (Zaroxolyn) 2.5 mg PO DAILY [facility] Last Admin: 08/29/17 10:46 Dose: 2.5 mg Purpz-0-Krzh Ethyl Esters (Lovaza) 1 gm PO QID [facility] Last Admin: 08/29/17 13:32 Dose: 1 gm Rosuvastatin Calcium (Crestor) 20 mg PO HS [facility] - Labs Labs: 08/28/17 10:05 08/28/17 10:05 PT 11.1 SECONDS (9.7-12.2) 08/29/17 11:18 INR 1.0 08/29/17 11:18 - Constitutional Appears: No Acute Distress, Chronically Ill - Head Exam Head Exam: ATRAUMATIC, NORMAL INSPECTION - Eye Exam Eye Exam: EOMI, Normal appearance - Neck Exam Neck Exam: Normal Inspection. absent: Tenderness - Respiratory Exam Respiratory Exam: Clear to Ausculation Bilateral, NORMAL BREATHING PATTERN - Cardiovascular Exam Cardiovascular Exam: REGULAR RHYTHM, +S1 - GI/Abdominal Exam GI & Abdominal Exam: Soft. absent: Tenderness - Extremities Exam Extremities Exam: Normal Inspection. absent: Tenderness - Neurological Exam Neurological Exam: Alert, CN II-XII Intact - Skin Skin Exam: Dry, Warm Assessment and Plan (1) Type 2 diabetes mellitus with diabetic nephropathy Status: Acute (2) End stage renal disease Status: Acute (3) Nephrotic syndrome Status: Acute (4) Multiple sclerosis Status: Acute - Assessment and Plan (Free Text) Plan: ok for discharge now will need readmission next week then permcath for dialysis surgery will place AV graft next week
--- NOTE | 2017-08-29 15:29 | CP.PCM.PN ---
Subjective - Date & Time of Evaluation Date of Evaluation: 08/29/17 Time of Evaluation: 15:29 - Subjective Subjective: alert and orientedx3, no sob or chest pain, no acute distress. Objective - Vital Signs/Intake and Output Vital Signs (last 24 hours): Temp Pulse Resp BP Pulse Ox 97.6 F 74 20 119/67 96 08/29/17 08:00 08/29/17 08:00 08/29/17 08:00 08/29/17 10:46 08/29/17 08:00 - Medications Medications: Current Medications Amlodipine Besylate (Norvasc) 5 mg PO DAILY [facility] Last Admin: 08/29/17 10:46 Dose: 5 mg Aspirin (Aspirin Chewable) 81 mg PO DAILY [facility] Last Admin: 08/29/17 12:15 Dose: 81 mg Calcitriol (Rocaltrol) 0.25 mcg PO DAILY [facility] Last Admin: 08/29/17 10:46 Dose: 0.25 mcg Calcium Acetate (Phoslo) 667 mg PO TIDCC [facility] Last Admin: 08/29/17 12:15 Dose: 667 mg Carvedilol (Coreg) 25 mg PO BID [facility] Last Admin: 08/29/17 10:46 Dose: 25 mg Furosemide (Lasix) 40 mg PO BID [facility] Last Admin: 08/29/17 10:45 Dose: 40 [facility] Last Admin: 08/29/17 08:25 Dose: 10 mg Home Med (Cu/Se/Vit A/Vit C/Vit E/Zinc [Ocuvite]) 1 tab PO DAILY [facility] Home Med (Magnesium [Magnesium]) 5,000 mg PO DAILY [facility] Insulin Human Regular (Novolin R) 0 unit SC [facility] PRN Reason: Protocol Last Admin: 08/29/17 12:16 Dose: 8 unit Metolazone (Zaroxolyn) 2.5 mg PO DAILY [facility] Last Admin: 08/29/17 10:46 Dose: 2.5 mg Hrmuh-1-[id number] Ethyl Esters (Lovaza) 1 gm PO QID [facility] Last Admin: 08/29/17 13:32 Dose: 1 gm Rosuvastatin Calcium (Crestor) 20 mg PO HS [facility] - Labs Labs: 08/28/17 10:05 08/28/17 10:05 PT 11.1 SECONDS (9.7-12.2) 08/29/17 11:18 INR 1.0 08/29/17 11:18 Assessment and Plan - Assessment and Plan (Free Text) Assessment: Patient admitted after unsuccessful dialysis yesterday, seen and examined. Alert and orientedx3, no acute symptoms. Patient is advised to come back next week for AV graft placement and dialysis. Discussed with DR Manzano, plan to discharge home today.
[2017-08-29 15:46] VITALS: BP 105/59; TEMP 98.2; O2SAT 97
[2017-08-29] MEDS ORDERED: Potassium Chloride 10 mEq ER Tab PO ONE (21:44)
--- NOTE | 2017-08-29 22:55 | CARD ---
APPROVED REPORT EKG Measurement Heart [id number] <Conclusion> Normal sinus rhythm Nonspecific ST and T wave abnormality Abnormal ECG
--- NOTE | 2017-08-31 15:40 | CP.PCM.DIS ---
Provider - Provider Date of Admission: 08/28/17 11:12 Attending physician: Leigha Manzano MD Time Spent in preparation of Discharge (in minutes): 3 Hospital Course - Lab Results Lab Results: Most Recent Lab Values WBC 11.1 K/uL (4.8-10.8) H 08/28/17 10:05 RBC 3.92 Mil/uL (3.80-5.20) 08/28/17 10:05 Hgb 11.1 g/dL (11.0-16.0) 08/28/17 10:05 Hct 31.9 % (34.0-47.0) L 08/28/17 10:05 MCV 81.5 fL (81.0-99.0) D 08/28/17 10:05 MCH 28.5 pg (27.0-31.0) 08/28/17 10:05 MCHC 34.9 g/dL (33.0-37.0) 08/28/17 10:05 RDW 12.6 % (11.5-14.5) 08/28/17 10:05 Plt Count 391 K/uL (130-400) 08/28/17 10:05 MPV 8.7 fL (7.2-11.7) 08/28/17 10:05 Neut % (Auto) 66.0 % (50.0-75.0) 08/28/17 10:05 Lymph % (Auto) 25.9 % (20.0-40.0) 08/28/17 10:05 [place] % (Auto) 5.4 % (0.0-10.0) 08/28/17 10:05 Eos % (Auto) 2.2 % (0.0-4.0) 08/28/17 10:05 Baso % (Auto) 0.5 % (0.0-2.0) 08/28/17 10:05 Neut # (Auto) 7.3 K/uL (1.8-7.0) H 08/28/17 10:05 Lymph # (Auto) 2.9 K/uL (1.0-4.3) 08/28/17 10:05 [place] # (Auto) 0.6 K/uL (0.0-0.8) 08/28/17 10:05 Eos # (Auto) 0.2 K/uL (0.0-0.7) 08/28/17 10:05 Baso # (Auto) 0.1 K/uL (0.0-0.2) 08/28/17 10:05 PT 11.1 SECONDS (9.7-12.2) 08/29/17 11:18 INR 1.0 08/29/17 11:18 Sodium 132 mmol/L (132-148) 08/28/17 10:05 Potassium 3.2 mmol/L (3.6-5.2) L 08/28/17 10:05 Chloride 85 mmol/L (98-107) L 08/28/17 10:05 Carbon Dioxide 31 mmol/L (22-30) H 08/28/17 10:05 Anion Gap 20 (10-20) 08/28/17 10:05 BUN 90 mg/dL (7-17) H 08/28/17 10:05 Creatinine 4.9 mg/dL (0.7-1.2) H 08/28/17 10:05 Est GFR ( Amer) 11 08/28/17 10:05 Est GFR (Non-Af Amer) 9 08/28/17 10:05 POC Glucose (mg/dL) 373 mg/dL (65-110) H 08/29/17 11:28 Random Glucose 489 mg/dL (65-105) H* 08/28/17 10:05 Calcium 9.6 mg/dl (8.6-10.4) 08/28/17 10:05 Phosphorus 5.3 mg/dL (2.5-4.5) H 08/28/17 12:08 % Saturation 19 (20-55) L 08/28/17 12:08 Ferritin 67.7 ng/mL 08/28/17 12:08 Total Bilirubin 0.4 mg/dL (0.2-1.3) 08/28/17 10:05 AST 19 U/L (14-36) 08/28/17 10:05 ALT 23 U/L (9-52) 08/28/17 10:05 Alkaline Phosphatase 201 U/L (38-126) H 08/28/17 10:05 Total Creatine Kinase 101 U/L (30-135) 08/28/17 10:05 CK-MB (Mass) 0.66 ng/mL (0.0-3.38) 08/28/17 10:05 Troponin I < 0.0120 ng/mL (0.00-0.120) 08/28/17 10:05 NT-Pro-B Natriuret Pep 121 pg/mL (0-900) 08/28/17 10:05 Total Protein 7.5 g/dL (6.3-8.3) 08/28/17 10:05 Albumin 4.1 g/dL (3.5-5.0) 08/28/17 10:05 Globulin 3.4 gm/dL (2.2-3.9) 08/28/17 10:05 Albumin/Globulin Ratio 1.2 (1.0-2.1) 08/28/17 10:05 PTH Intact Whole Molec 60 pg/mL (14-64) 08/28/17 12:08 Urine HCG, Qual Negative (NEGATIVE) 08/29/17 19:52 Hep Bs Antigen Negative (NEGATIVE) 08/28/17 12:08 Hep Bs Antibody Negative (NEGATIVE) 08/28/17 12:08 Hep B Core IgM Ab Negative (NEGATIVE) 08/28/17 12:08 Hepatitis C Antibody Negative (NEGATIVE) 08/28/17 12:08 - Hospital Course Hospital Course: Patient presented to [facility] emergency room with complaints of shortness of breath. Patient has a chronic kidney disease stage V secondary to diabetic nephropathy and few months ago patient had an AV shunt placed and patient is going to begin her dialysis on this admission. Primary work in the emergency room shows normal BNP and chest x-ray showed no infiltrates or CHF. Patient has a history of diabetes type 2 and hypertension. There is no history of coronary artery disease CHF in the past. Patient has a history of multiple sclerosis. Next day patient underwent a dialysis through the AV shunt. Only 40 minutes of dialysis was done as the shunt was clotted. The vascular surgeon was consulted. The ultrasound of the shunt showed possible thrombus The following day patient underwent the angiograph of the shunt in the cath room by the interventional radiologist which definitely showed a clot on the venous side. The string winding machine operator and the surgeon had a mutual discussion and subsequently patient was discharged and will be followed an outpatient for removal of clot. Patient will continue present medication. There was no evidence of any further CHF. Echo was not done, will inform patient for follow-up with the amusement ride operator Discharge Exam - Head Exam Head Exam: ATRAUMATIC, NORMAL INSPECTION Discharge Plan - Follow Up Plan Condition: STABLE Disposition: HOME/ ROUTINE Instructions: Diabetic Nephropathy , Diabetes Type 2 (DC), Nephrotic Syndrome ( DC), End Stage Kidney Disease (DC), Dialysis and Diet Additional Instructions: Follow up with Dr. Shetty and Dr. Smith. Return to ED if any symptoms return or worsen. Referrals: Dominik Smith MD [Staff Provider] - Leigha Manzano MD [Staff Provider] - Ceferino Shetty MD [Staff Provider] - Miguelito Cali MD [Staff Provider] -
== END 2017-08-29 16:28 | disposition home or self-care (01) | DRG 699 ==
LOC: C.ER 09:20 → C.9E 11:12 → OBSVTOIN 11:12 → C.5S 12:19
PROVIDERS: ADMIT Internal Medicine Cardiovascular Disease; ATTEND Internal Medicine Cardiovascular Disease
PROC: 5A1D70Z Performance of Urinary Filtration, Intermittent, Less than 6 Hours Per Day (ICD-10-PCS; principal; 2017-08-28)
DX: E11.21 Type 2 diabetes mellitus with diabetic nephropathy (principal); I12.0 Hypertensive chronic kidney disease with stage 5 chronic kidney disease or end stage renal disease; T82.868A Thrombosis due to vascular prosthetic devices, implants and grafts, initial encounter; E11.22 Type 2 diabetes mellitus with diabetic chronic kidney disease; N18.6 End stage renal disease; G35 Multiple sclerosis; N04.9 Nephrotic syndrome with unspecified morphologic changes; E78.00 Pure hypercholesterolemia, unspecified; Z87.891 Personal history of nicotine dependence; Z98.891 History of uterine scar from previous surgery; Z99.2 Dependence on renal dialysis

== ENCOUNTER 2017-09-01 09:18 | Inpatient (IN) | payer BC ==
[2017-09-01 09:18] VITALS: BMI 36.8
--- NOTE | 2017-09-01 09:49 | C.PDOC ---
History Of Present Illness 52 yo female w/PMHx of NIDDM, diabetic nephropathy, started on HD on 08/28/17, preset to ED as per request for perma cath placement. Pt sts. had graft to Left upper arm placed on 08/29/17 that failed, " was unable to get HD on 08/29/17. Otherwise, pt reports, feeling weak, tired. Denies fever, chills, headache, dizziness, CP, SOB, dyspnea, diaphoresis, palpitation, abd. pain, V/D , UTI sx. Ambulate to ED, appears comfortable, not in any apparent distress. Time Seen by Provider: 09/01/17 09:33 Chief Complaint (Nursing): Medical Clearance History Per: Patient Past Medical History Reviewed: Historical Data, Nursing Documentation, Vital Signs Vital Signs: Last Vital Signs Temp 99.2 F 09/01/17 15:10 Pulse 79 09/01/17 16:00 Resp 13 09/01/17 16:00 BP 132/69 09/01/17 16:00 Pulse Ox 100 09/01/17 16:00 - Medical History PMH: Arthritis (l ankle hx orif; toe prob), Diabetes, Fractures (left ankle), HTN, Hypercholesterolemia, Multiple Sclerosis, Peripheral Edema (not at present) , End Stage Renal Disease, Chronic Kidney Disease - [facility] (08/28/17) Family History: States: Unknown Family Hx - Social History Hx Alcohol Use: No Hx Substance Use: No - Immunization History Hx Tetanus Toxoid Vaccination: No Hx Influenza Vaccination: No Hx Pneumococcal Vaccination: No Review Of Systems Except As Marked, All Systems Reviewed And Found Negative. Constitutional: Positive for: Malaise. Negative for: Fever, Chills Eyes: Negative for: Vision Change, Redness ENT: Negative for: Ear Discharge, Nose Discharge, Throat Pain, Throat Swelling Cardiovascular: Negative for: Chest Pain, Palpitations, Orthopnea, Edema, Light Headedness Respiratory: Negative for: Cough, Shortness of Breath, SOB with Excertion, Wheezing Gastrointestinal: Negative for: Nausea, Vomiting, Abdominal Pain, Diarrhea Genitourinary: Negative for: Dysuria Musculoskeletal: Negative for: Neck Pain, Back Pain Neurological: Negative for: Altered Mental Status, Headache, Dizziness Physical Exam - Physical Exam Appears: Well, No Acute Distress Skin: Normal Color, Warm, Dry Head: Normacephalic Eye(s): bilateral: PERRL Nose: No Flaring Throat: No Erythema, No Drooling Neck: Trachea Midline, Supple Cardiovascular: Rhythm Regular, No Murmur, No JVD, Other ((-) carotid bruits B/L ) Respiratory: No Decreased Breath Sounds, No Accessory Muscle Use, No Wheezing, No Plerual Rub Gastrointestinal/Abdominal: Soft, No Tenderness Back: No CVA Tenderness Extremity: Normal ROM, No Tenderness, No Deformity, Other (Left upper arm diffuse ecchymoses, no palpable hematoma.) Neurological/Psych: Oriented x3, Normal Speech, Normal Motor, Normal Sensation, Normal Reflexes ED Course And Treatment - Laboratory Results Result Diagrams: 09/01/17 09:55 09/01/17 09:55 Lab Interpretation: Abnormal O2 Sat by Pulse Oximetry: 99 Pulse Ox Interpretation: Normal Progress Note: Case discussed with , OR scheduled in [place]. NPO , blood work. Admission to recommend. Case dsicussed with and admission arranged. Nephrology DR. Smith notified. Pt remained stable during the ED evaluation, agrees with plan. Disposition - Disposition Disposition: HOSPITALIZED Disposition Time: 10:02 Condition: STABLE - Clinical Impression Clinical Impression: CKD (chronic kidney disease) stage 5, GFR less than 15 ml/min, End stage renal disease, Failure of hemodialysis access
[2017-09-01 10:08] LABS: BASO # 0.1 K/uL (0.0-0.2); BASO % 0.8 % (0.0-2.0); EOS # 0.2 K/uL (0.0-0.7); EOS % 1.5 % (0.0-4.0); HEMOGLOBIN 10.8 g/dL (11.0-16.0); LYMPH % 29.4 % (20.0-40.0); MEAN CELL VOLUME 81.1 fL (81.0-99.0); MEAN CORPUSCULAR HEMOGLOBIN 28.8 pg (27.0-31.0); MEAN CORPUSCULAR HGB CONC 35.5 g/dL (33.0-37.0); MEAN PLATELET VOLUME 8.8 fL (7.2-11.7); MONO # 0.9 K/uL (0.0-0.8); MONO % 6.6 % (0.0-10.0); NEUT # 8.4 K/uL (1.8-7.0); NEUT % 61.7 % (50.0-75.0); RBC 3.73 Mil/uL (3.80-5.20); RED CELL DISTRIBUTION WIDTH 12.6 % (11.5-14.5); WHITE BLOOD COUNT 13.6 K/uL (4.8-10.8)
[2017-09-01 10:16] LABS: INR 0.9; PROTHROMBIN TIME 10.1 SECONDS (9.7-12.2)
[2017-09-01 10:28] LABS: ALB/GLOB RATIO 1.3 (1.0-2.1); ALBUMIN 4.3 g/dL (3.5-5.0); CALCIUM 9.6 mg/dl (8.6-10.4)
[2017-09-01] MEDS ORDERED: Sodium Chloride 0.9% 500 ML IV ONE ×4 (10:55→15:10)
--- NOTE | 2017-09-01 13:09 | CP.PCM.HP ---
History of Present Illness - History of Present Illness History of Present Illness: COMPREHENSIVE HISTORY & PHYSICAL EXAM HPI Patient is admitted for placement of perma catheter. About 2 months ago patient had a AV shunt placed on the left arm and subsequently was admitted last week for dialysis dialysis was incomplete as the graft was not functioning further workup showed that the patient had a clot in the venous side of the graft. Patient was discharged and was supposed to have outpatient thrombectomy. But as per the surgeon patient is going to need a permacath prior to revision of the AV shunt. Patient is a history of diabetic nephropathy with end-stage kidney disease stage V. Patient has not had dialysis since 1 month PAST HIST. Type 2 diabetes and hypertension PERSONAL HIST: Smoking. N Alcohol. N Allergy N Travel_- . FAMILY HIST : ROS : Constitutional: Negative for weight change, chills, night sweats, fatigue and usage of assist device. Eyes: Negative for redness, swelling, itching, discharge, vision changes, blurry vision, double vision, glaucoma, cataracts, Ears: Negative for hearing loss, ringing, , tinnitus, vertigo Nose: Negative for rhinorrhea, stuffiness, sniffing, itching, postnasal drip, discoloration, nasal congestion and epistaxis. Throat: Negative for throat clearing, sore throat, hoarseness, difficulty swallowing and difficulty speaking. Respiratory: Negative for cough, , sputum production, chest tightness, wheezing, pleuritic chest pain ,daytime somnolence, chronic cough, hemoptysis, snoring at night, Cardiovascular: Negative for chest pain, palpitations, orthopnea, PND, Edema of legs, leg cramps, angina, claudication, , irregular heartbeat, Neurology: Negative for irritability, muscle weakness, numbness and tingling, seizures, tremors, migraines, slurred speech, syncope, memory loss, mood changes , recurrent headaches Gastrointestinal: Negative for difficulty swallowing, diarrhea, constipation, black stools, rectal bleeding, nausea, flatulence, reflux, poor appetite, changes in bowel habits, abdominal pain Genitourinary: Negative for frequent urination, hematuria, discharge, incontinence, urinary retention, frequent UTI, Psychiatric: Negative for depression, anxiety/panic, suicidal tendencies, Musculoskeletal: Negative for swollen joints, back pain, , neck pain, morning stiffness of joints, . Pain in the left arm region Skin: Negative for rash, ulcers, itching, dry skin and pigmented lesions. P/E: Constitutional: Appears stated age and in no apparent distress. Head: Normocephalic. Ears: External ear canals patent without inflammation. Tympanic membranes intact with normal light reflex and landmark. Eyes: Pupils are central, bilaterally equal, symmetrical and reacts to light with normal movements and no icterus or pallor. Nose: External nares are patent. Mucosa is pink Mouth-Throat: Good general appearance and condition. No post-pharyngeal/oropharyngeal erythema and tonsillar hypertrophy. Good dental hygiene. Neck-Lymphatic: Neck is supple with normal ROM, no thyromegaly, lymph nodes or masses. JVD is normal with no carotid bruit. Lungs: Clear to percussion and auscultation with bilateral normal air entry. Cardiovascular: S1 and S2 are normal with no murmurs, gallops and rub. GI Exam: No hepatomegaly. Abdomen is soft and non-tender. No Organomegaly , masses or hernias are evident and bowel sounds are normal and active. Neurology: Higher function and all cranial nerves intact, with no gross motor or sensory deficit. Superficial and deep reflexes are normal with downwards planters. No cerebellar deficit with normal gait. Musculoskeletal: No tender spots with normal curvature of the spine with no swelling or restricted ROM of the small and large joints. Extremities: Homans sign absent. Intact pulses with no pitting edema, calf tenderness or skin color changes. Patient has AV shunt has no bruit and there is surrounding inflammation and tenderness Skin: No rash, eruptions or abnormal skin pigmentation LAB/RADIOLOGY: ASSESMENT : Nonfunctioning AV shunt for placement of Perm a catheter. Stage IV chronic kidney disease secondary to diabetes PLAN: After placement of the catheter patient will get 1 dose of dialysis and plan further. Present on Admission - Present on Admission Any Indicators Present on Admission: No Past Patient History - Past Medical History & Family History Past Medical History?: Yes - Past Social History Smoking Status: Former Smoker - CARDIAC Hx Hypercholesterolemia: Yes Hx Hypertension: Yes Hx Peripheral Edema: Yes (not at present) - PULMONARY Hx Respiratory Disorders: No - NEUROLOGICAL Hx Multiple Sclerosis: Yes - HEENT Hx HEENT Problems: No - RENAL Hx Chronic Kidney Disease: Yes - ENDOCRINE/METABOLIC Hx Endocrine Disorders: Yes Hx Diabetes Mellitus Type 2: Yes - HEMATOLOGICAL/ONCOLOGICAL Hx Blood Disorders: Yes - INTEGUMENTARY Hx Dermatological Problems: No - MUSCULOSKELETAL/RHEUMATOLOGICAL Hx Arthritis: Yes (l ankle hx orif; toe prob) Hx Fractures: Yes (left ankle) - GASTROINTESTINAL Hx Gastrointestinal Disorders: (constipation) - GENITOURINARY/GYNECOLOGICAL Hx Genitourinary Disorders: No - PSYCHIATRIC Hx Substance Use: No - SURGICAL HISTORY Hx Surgeries: Yes Hx Section: Yes (x2) Hx Open Reduction Internal Fixation: Yes (left ankle) Other/Comment: av shunt insertion 06/17/17 - ANESTHESIA Hx Anesthesia: Yes Hx Anesthesia Reactions: No Hx Malignant Hyperthermia: No Meds Allergies/Adverse Reactions: Allergies Allergy/AdvReac Type Severity Reaction Status Date / Time No Known Allergies Allergy Verified 09/01/17 09:25 Results - Vital Signs Recent Vital Signs: Last Vital Signs Temp 98.1 F 09/01/17 09:21 Pulse 78 09/01/17 09:21 Resp 18 09/01/17 09:21 BP 146/75 09/01/17 09:21 Pulse Ox 99 09/01/17 10:56 - Labs Result Diagrams: 09/01/17 09:55 09/01/17 09:55 Labs: Laboratory Results - last 24 hr 09/01/17 09/01/17 09/01/17 09:55 09:55 09:55 WBC 13.6 H RBC 3.73 L Hgb 10.8 L Hct 30.3 L MCV 81.1 MCH 28.8 MCHC 35.5 RDW 12.6 Plt Count 393 MPV 8.8 Neut % (Auto) 61.7 Lymph % (Auto) 29.4 [place] % (Auto) 6.6 Eos % (Auto) 1.5 Baso % (Auto) 0.8 Neut # (Auto) 8.4 H Lymph # (Auto) 4.0 [place] # (Auto) 0.9 H Eos # (Auto) 0.2 Baso # (Auto) 0.1 PT 10.1 INR 0.9 APTT 29 Sodium 139 Potassium 3.2 L Chloride 91 L Carbon Dioxide 31 H Anion Gap 20 BUN 102 H* Creatinine 4.8 H Est GFR ( Amer) 12 Est GFR (Non-Af Amer) 10 Random Glucose 133 H Calcium 9.6 Total Bilirubin 0.6 AST 37 H D ALT 32 Alkaline Phosphatase 135 H D Total Protein 7.8 Albumin 4.3 Globulin 3.4 Albumin/Globulin Ratio 1.3
--- NOTE | 2017-09-01 13:26 | CP.PCM.CON ---
History of Present Illness - History of Present Illness History of Present Illness: HPI Patient is admitted for placement of perm catheter. About 2 months ago patient had a AV shunt placed on the left arm and subsequently was admitted last week for dialysis dialysis was incomplete as the graft was not functioning further workup showed that the patient had a clot in the venous side of the graft. Patient was discharged and was supposed to have outpatient thrombectomy. But as per the surgeon patient is going to need a permcath prior to new placement of AV graft Patient is a history of diabetic nephropathy with end-stage kidney disease stage V. Patient had only 1 incomplete dialysis session PAST HIST. Type 2 diabetes, multiple sclerosis PERSONAL HIST: Smoking.- former Alcohol. N Allergy N illicits- negative, ETOH- negative. FAMILY HIST : noncontributory, no CKD Review of Systems - Constitutional Constitutional: Fatigue, Weakness - EENT Eyes: absent: As Per HPI, Blind Spots, Blurred Vision, Change in Vision, Decreased Night Vision, Diplopia, Discharge, Dry Eye, Exophthalmos, Floaters, Irritation, Itchy Eyes, Loss of Peripheral Vision, Pain, Photophobia, Requires Corrective Lenses, Sees Flashes, Spots in Vision, Tunnel Vision, Other Visual Disturbances, Loss of Vision, Other Ears: absent: As Per HPI, Decreased Hearing, Ear Discharge, Ear Pain, Tinnitus, Abnormal Hearing, Disequilibrium, Dizziness, Other Nose/Mouth/Throat: absent: As Per HPI, Epistaxis, Nasal Congestion, Nasal Discharge, Nasal Obstruction, Nasal Trauma, Nose Pain, Post Nasal Drip, Sinus Pain, Sinus Pressure, Bleeding Gums, Change in Voice, Dental Pain, Dry Mouth, Dysphagia, Halitosis, Hoarsness, Lip Swelling, Mouth Lesions, Mouth Pain, Odynophagia, Sore Throat, Throat Swelling, Tongue Swelling, Facial Pain, Neck Pain, Neck Mass, Other - Cardiovascular Cardiovascular: Dyspnea on Exertion, Edema - Respiratory Respiratory: Dyspnea on Exertion - Gastrointestinal Gastrointestinal: absent: As Per HPI, Abdominal Pain, Belching, Bloating, Change in Bowel Habits, Change in Stool Character, Coffee Ground Emesis, Constipation, Cramping, Diarrhea, Dyspepsia, Dysphagia, Early Satiety, Excessive Flatus, Fecal Incontinence, Heartburn, Hematemesis, Hematochezia, Loose Stools, Melena, Nausea, Odynophagia, Temesmus, Vomiting, Other - Genitourinary Genitourinary: Voiding Freq/Small Amts - Musculoskeletal Musculoskeletal: Muscle Weakness, Myalgias - Neurological Neurological: Numbness, Weakness Past Patient History - Past Medical History & Family History Past Medical History?: Yes Past Family History: Reviewed and not pertinent - Past Social History Smoking Status: Former Smoker Chewing Tobacco Use: No Cigar Use: No Alcohol: None Drugs: Denies Home Situation {Lives}: With Family - CARDIAC Hx Hypercholesterolemia: Yes Hx Hypertension: Yes Hx Peripheral Edema: Yes (not at present) - PULMONARY Hx Respiratory Disorders: No - NEUROLOGICAL Hx Multiple Sclerosis: Yes - HEENT Hx HEENT Problems: No - RENAL Hx Chronic Kidney Disease: Yes - ENDOCRINE/METABOLIC Hx Endocrine Disorders: Yes Hx Diabetes Mellitus Type 2: Yes - HEMATOLOGICAL/ONCOLOGICAL Hx Blood Disorders: Yes - INTEGUMENTARY Hx Dermatological Problems: No - MUSCULOSKELETAL/RHEUMATOLOGICAL Hx Arthritis: Yes (l ankle hx orif; toe prob) Hx Fractures: Yes (left ankle) - GASTROINTESTINAL Hx Gastrointestinal Disorders: (constipation) - GENITOURINARY/GYNECOLOGICAL Hx Genitourinary Disorders: No - PSYCHIATRIC Hx Substance Use: No - SURGICAL HISTORY Hx Surgeries: Yes Hx Section: Yes (x2) Hx Open Reduction Internal Fixation: Yes (left ankle) Other/Comment: av shunt insertion 06/17/17 - ANESTHESIA Hx Anesthesia: Yes Hx Anesthesia Reactions: No Hx Malignant Hyperthermia: No Meds Allergies/Adverse Reactions: Allergies Allergy/AdvReac Type Severity Reaction Status Date / Time No Known Allergies Allergy Verified 09/01/17 09:25 - Medications Medications: Current Medications Amlodipine Besylate (Norvasc) 5 mg PO DAILY [facility] Aspirin (Aspirin Chewable) 81 mg PO DAILY [facility] Calcitriol (Rocaltrol) 0.25 mcg PO DAILY [facility] Carvedilol (Coreg) 25 mg PO BID [facility] Sodium Chloride (Sodium Chloride 0.9%) 500 mls @ 30 mls/hr IV .[id number] ONE Stop: 09/02/17 03:34 Metolazone (Zaroxolyn) 2.5 mg PO DAILY [facility] Physical Exam - Constitutional Appears: No Acute Distress, Chronically Ill - Head Exam Head Exam: ATRAUMATIC, NORMAL INSPECTION - Eye Exam Eye Exam: EOMI, Normal appearance - Neck Exam Neck exam: Positive for: Normal Inspection. Negative for: Tenderness - Respiratory Exam Respiratory Exam: Clear to Auscultation Bilateral, NORMAL BREATHING PATTERN - Cardiovascular Exam Cardiovascular Exam: REGULAR RHYTHM, +S1 - GI/Abdominal Exam GI & Abdominal Exam: Soft. absent: Tenderness - Extremities Exam Extremities exam: Positive for: normal inspection, tenderness - Neurological Exam Neurological exam: Abnormal Gait, CN II-XII Intact, Oriented x3 - Skin Skin Exam: Dry, Warm Results - Vital Signs Recent Vital Signs: Last Vital Signs Temp 98.1 F 09/01/17 09:21 Pulse 78 09/01/17 09:21 Resp 18 09/01/17 09:21 BP 146/75 09/01/17 09:21 Pulse Ox 99 09/01/17 10:56 - Labs Result Diagrams: 09/01/17 09:55 09/01/17 09:55 Labs: Laboratory Results - last 24 hr 09/01/17 09/01/17 09/01/17 09:55 09:55 09:55 WBC 13.6 H RBC 3.73 L Hgb 10.8 L Hct 30.3 L MCV 81.1 MCH 28.8 MCHC 35.5 RDW 12.6 Plt Count 393 MPV 8.8 Neut % (Auto) 61.7 Lymph % (Auto) 29.4 [place] % (Auto) 6.6 Eos % (Auto) 1.5 Baso % (Auto) 0.8 Neut # (Auto) 8.4 H Lymph # (Auto) 4.0 [place] # (Auto) 0.9 H Eos # (Auto) 0.2 Baso # (Auto) 0.1 PT 10.1 INR 0.9 APTT 29 Sodium 139 Potassium 3.2 L Chloride 91 L Carbon Dioxide 31 H Anion Gap 20 BUN 102 H* Creatinine 4.8 H Est GFR ( Amer) 12 Est GFR (Non-Af Amer) 10 Random Glucose 133 H Calcium 9.6 Total Bilirubin 0.6 AST 37 H D ALT 32 Alkaline Phosphatase 135 H D Total Protein 7.8 Albumin 4.3 Globulin 3.4 Albumin/Globulin Ratio 1.3 Assessment & Plan (1) Type 2 diabetes mellitus with diabetic nephropathy Status: Acute (2) CKD (chronic kidney disease) stage 5, GFR less than 15 ml/min Status: Acute (3) End stage renal disease Status: Acute (4) Failure of hemodialysis access Status: Acute - Assessment and Plan (Free Text) Plan: permcath Set up for dialysis then nee AV graft
[2017-09-01] MEDS ORDERED: Lidocaine Hydrochloride 20 ML INJ ONE (14:21)
[2017-09-01] MEDS ORDERED: HEPARIN-NS 5,000 UNITS/500 ML 5,000 UNIT/500 ML BAG IV ONE (14:21)
[2017-09-01] MEDS ORDERED: Midazolam 2 MG/2 ML VIAL ONE (14:30)
[2017-09-01] MEDS ORDERED: Propofol 10 mg/ml Inj (20 ML) ONE (14:30)
[2017-09-01] MEDS ORDERED: ceFAZolin 1 gm in NS 1 GM/100 ML BAG IVPB ONE (14:40)
[2017-09-01] MEDS ORDERED: Etomidate 20 mg/10ml Inj IV ONE ×2 (14:49→15:02)
[2017-09-01] MEDS ORDERED: Bacitracin Ointment 30 GM TUBE ONE (15:07)
[2017-09-01] MEDS ORDERED: HYDROmorphone 0.5 mg/0.5 ml ISec IVP PRN (15:11)
[2017-09-01] MEDS ORDERED: Oxycodone/Acetaminophen 5/325 mg Tab PO PRN (15:12)
--- NOTE | 2017-09-01 16:19 | RAD ---
Chest x-ray single frontal view History: PermCath placement. Comparison: 08/28/2017 Findings: Right PermCath with tip extending to right atrium. Mild venous congestion. No evidence of postprocedure pneumothorax. Heart size within normal limits. Calcific tendinopathy of the right proximal humerus. Impression: Right PermCath with tip extending to right atrium. Mild venous congestion. No evidence of postprocedure pneumothorax.
--- NOTE | 2017-09-01 16:32 | RAD ---
PROCEDURE: Intraoperative Fluoroscopy. HISTORY: RENAL FAILURE FINDINGS: Fluoroscopic assistance was provided for right-sided PermCath placement. Please refer to the operative report from [facility].
[2017-09-01] MEDS: (Novolin R) Insulin Human Regular 100 units/ml vial SC SCH (22:07)
--- NOTE | 2017-09-02 02:41 | OP ---
PROCEDURE DATE: 09/01/2017 PREOPERATIVE DIAGNOSIS: Chronic renal failure. POSTOPERATIVE DIAGNOSIS: Chronic renal failure. PROCEDURE PERFORMED: Insertion of permanent dialysis catheter. SURGEON: Ceferino Shetty MD ANESTHESIA: General. BLOOD LOSS: 30 mL. POSTOPERATIVE CONDITION: Stable. INDICATIONS FOR SURGERY: This is a 52-year-old female, two months status post placement of a left arm basilic vein transposition of the fistula that was working nicely, however upon the first dialysis, unfortunately clotted. The patient is now taken back for a PermCath insertion. DESCRIPTION OF PROCEDURE: The patient was taken to the operating room, and IV sedation was administered. The right neck and chest wall were prepped and draped. The right internal jugular vein was cannulated, and a guidewire was inserted into the vena cava. This was confirmed fluoroscopically. Next under direct vision, PermCath was tunneled into the neck incision and inserted over an introducer. There was a fair amount of bleeding from the neck incision and a small bleeding from the branch of the external vein was encountered and repaired. Placement was confirmed fluoroscopically. The wound incisions were closed with Monocryl and dressed sterilely. The catheter was flushed with heparinized saline. The patient tolerated the procedure well, returned to recovery room in stable condition. Ceferino Shetty MD
[2017-09-02] MEDS ORDERED: (Novolin R) Insulin Human Regular 100 units/ml vial SC ONE ×2 (02:49→21:54)
[2017-09-02] MEDS ORDERED: Potassium Chloride 20 mEq ER Tab PO ONE (02:50)
[2017-09-02 07:56] LABS: BASO # 0.1 K/uL (0.0-0.2); BASO % 0.5 % (0.0-2.0); EOS # 0.1 K/uL (0.0-0.7); EOS % 1.1 % (0.0-4.0); HEMOGLOBIN 10.1 g/dL (11.0-16.0); LYMPH # 2.5 K/uL (1.0-4.3); MEAN CELL VOLUME 81.5 fL (81.0-99.0); MEAN CORPUSCULAR HEMOGLOBIN 29.2 pg (27.0-31.0); MEAN CORPUSCULAR HGB CONC 35.8 g/dL (33.0-37.0); MONO # 0.5 K/uL (0.0-0.8); MONO % 5.1 % (0.0-10.0); NEUT # 7.6 K/uL (1.8-7.0); NEUT % 70.3 % (50.0-75.0); RBC 3.44 Mil/uL (3.80-5.20); RED CELL DISTRIBUTION WIDTH 12.7 % (11.5-14.5); WHITE BLOOD COUNT 10.8 K/uL (4.8-10.8)
[2017-09-02 08:12] LABS: ALB/GLOB RATIO 1.2 (1.0-2.1); ALBUMIN 3.9 g/dL (3.5-5.0); CALCIUM 8.9 mg/dl (8.6-10.4)
[2017-09-02] MEDS ORDERED: metOLazone 2.5 MG TAB PO SCH (10:00)
[2017-09-02] MEDS: (Novolin R) Insulin Human Regular 100 units/ml vial SC SCH ×5 (10:56→22:10)
--- NOTE | 2017-09-02 13:08 | CP.PCM.PN ---
Subjective - Date & Time of Evaluation Date of Evaluation: 09/02/17 Time of Evaluation: 13:06 - Subjective Subjective: seen and examiend no complaints s/p permcath placement lue avf non functional denies any fevrs chills sob cp n/v/d/dizziness/headache/cough consent for hd in chart Objective - Vital Signs/Intake and Output Vital Signs (last 24 hours): Temp Pulse Resp BP Pulse Ox 98.0 F 73 20 154/68 H 98 09/02/17 07:10 09/02/17 07:10 09/02/17 07:10 09/02/17 10:55 09/02/17 07:10 Intake and Output: 09/02/17 09/02/17 06:59 18:59 Intake Total 360 Balance 360 - Medications Medications: Current Medications Acetaminophen (Tylenol 325mg Tab) 650 mg PO Q4 PRN PRN Reason: Pain, Mild (1-3) Last Admin: 09/02/17 12:24 Dose: 650 mg Amlodipine Besylate (Norvasc) 5 mg PO DAILY [facility] Last Admin: 09/02/17 10:55 Dose: 5 mg Aspirin (Aspirin Chewable) 81 mg PO DAILY [facility] Last Admin: 09/02/17 10:55 Dose: 81 mg Calcitriol (Rocaltrol) 0.25 mcg PO DAILY [facility] Last Admin: 09/02/17 10:56 Dose: 0.25 mcg Carvedilol (Coreg) 25 mg PO BID [facility] Last Admin: 09/02/17 10:55 Dose: 25 mg Insulin Human Regular (Novolin R) 0 unit SC ACHS [facility] PRN Reason: Protocol Last Admin: 09/02/17 12:26 Dose: 8 units Oxycodone/Acetaminophen (Percocet 5/325 Mg Tab) 2 tab PO Q4H PRN PRN Reason: pain Stop: 09/04/17 15:13 Last Admin: 09/01/17 20:24 Dose: 2 tab - Labs Labs: 09/02/17 07:31 09/02/17 07:31 PT 10.1 SECONDS (9.7-12.2) 09/01/17 09:55 INR 0.9 09/01/17 09:55 APTT 29 SECONDS (21-34) 09/01/17 09:55 - Constitutional Appears: Non-toxic, No Acute Distress - Head Exam Head Exam: NORMAL INSPECTION, NORMOCEPHALIC - Eye Exam Eye Exam: Normal appearance, PERRL - ENT Exam ENT Exam: Mucous Membranes Moist, Normal Exam - Neck Exam Neck Exam: Full ROM, Normal Inspection - Respiratory Exam Respiratory Exam: Clear to Ausculation Bilateral, NORMAL BREATHING PATTERN - Cardiovascular Exam Cardiovascular Exam: REGULAR RHYTHM, RRR - GI/Abdominal Exam GI & Abdominal Exam: Distended, Soft - Extremities Exam Extremities Exam: Normal Inspection (lue avf), Pedal Edema - Neurological Exam Neurological Exam: Alert, Awake, Oriented x3 - Psychiatric Exam Psychiatric exam: Normal Affect, Normal Mood - Skin Skin Exam: Dry, Intact, Warm Assessment and Plan (1) End stage renal disease Status: Acute (2) Type 2 diabetes mellitus with diabetic nephropathy Status: Acute (3) Essential (primary) hypertension Status: Acute (4) Anemia Status: Acute - Assessment and Plan (Free Text) Assessment: start hd, first treatment today dc metolazone bp acceptable amberly w/ hd plan for av graft tomorrow
--- NOTE | 2017-09-02 14:06 | CP.PCM.PN ---
Subjective - Date & Time of Evaluation Date of Evaluation: 09/02/17 Time of Evaluation: 14:04 - Subjective Subjective: CHIEF COMPLAINTS TODAY : Early this morning patient had headaches pain in the neck and arms which is relieved with Tylenol. No fever no nausea or vomiting. Permacath placed ROS. HEENT : N. Resp : No cough, wheezing ,pleuritic CP ,or hemoptysis Cardio : No anginal CP, PND, orthopnea, palpitation GI : No abd.pain, n/v ,diarrhea or GI bleeding . 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 Musculoskel : No joint swelling , Derm : No rash Psych : Normal affect. Ext : No swelling ,calf pain PE. Pt. is alert awake in no distress. V.S As noted in the chart Head ,ear nose,throat and eyes : Normal. Neck : Supple with normal carotids. Lungs: Clear air entry. Heart : S1 & S2 normal with S4. No murmur. Abd : Soft non tender with normal bowel sounds. Neuro : Moves all ext. with no localized deficit. Ext : No edema with intact pulses.Non tender calves Derm : No rashes or decubitus ulcer. LABS/RADIOLOGY: ASSESSMENT/PLAN : Trial of dialysis through permacath today. Clotted AV shunts, further treatment as per surgery Objective - Vital Signs/Intake and Output Vital Signs (last 24 hours): Temp Pulse Resp BP Pulse Ox 98.0 F 73 20 154/68 H 98 09/02/17 07:10 09/02/17 07:10 09/02/17 07:10 09/02/17 10:55 09/02/17 07:10 Intake and Output: 09/02/17 09/02/17 11:59 23:59 Intake Total 120 Balance 120 - Medications Medications: Current Medications Acetaminophen (Tylenol 325mg Tab) 650 mg PO Q4 PRN PRN Reason: Pain, Mild (1-3) Last Admin: 09/02/17 12:24 Dose: 650 mg Amlodipine Besylate (Norvasc) 5 mg PO DAILY [facility] Last Admin: 09/02/17 10:55 Dose: 5 mg Aspirin (Aspirin Chewable) 81 mg PO DAILY [facility] Last Admin: 09/02/17 10:55 Dose: 81 mg Calcitriol (Rocaltrol) 0.25 mcg PO DAILY [facility] Last Admin: 09/02/17 10:56 Dose: 0.25 mcg Carvedilol (Coreg) 25 mg PO BID [facility] Last Admin: 09/02/17 10:55 Dose: 25 mg Epoetin Jose (Procrit) 10,000 unit IV MWF [facility] Heparin Sodium (Porcine) (Heparin) 5,000 units SC Q12 [facility] Insulin Human Regular (Novolin R) 0 unit SC ACHS [facility] PRN Reason: Protocol Last Admin: 09/02/17 14:01 Dose: Not Given Oxycodone/Acetaminophen (Percocet 5/325 Mg Tab) 2 tab PO Q4H PRN PRN Reason: pain Stop: 09/04/17 15:13 Last Admin: 09/01/17 20:24 Dose: 2 tab - Labs Labs: 09/02/17 07:31 09/02/17 07:31 PT 10.1 SECONDS (9.7-12.2) 09/01/17 09:55 INR 0.9 09/01/17 09:55 APTT 29 SECONDS (21-34) 09/01/17 09:55
[2017-09-02 14:41] LABS: CALCIUM 8.9 mg/dl (8.6-10.4)
[2017-09-02 15:12] LABS: HEPATITIS B SURFACE AG Negative (NEGATIVE)
[2017-09-02 15:18] LABS: FERRITIN 64.9 ng/mL; HEPATITIS B CORE AB NEGATIVE (NEGATIVE)
[2017-09-02 15:29] LABS: HEPATITIS C ANTIBODY NEGATIVE (NEGATIVE)
[2017-09-03] MEDS ORDERED: (Novolin R) Insulin Human Regular 100 units/ml vial SC ONE (08:26)
[2017-09-03] MEDS: (Novolin R) Insulin Human Regular 100 units/ml vial SC SCH ×2 (08:41→13:38)
[2017-09-03 09:28] LABS: CALCIUM 8.2 mg/dl (8.6-10.4)
[2017-09-03] MEDS ORDERED: ceFAZolin 1 gm in NS 0 GM/0 ML BAG IVPB ONE (10:04)
[2017-09-03] MEDS ORDERED: HEPARIN-NS 5,000 UNITS/500 ML 0 UNIT/0 ML BAG IV ONE (10:04)
[2017-09-03] MEDS ORDERED: Iohexol 240 (50 ml) ONE (10:05)
[2017-09-03] MEDS ORDERED: Lidocaine Hydrochloride 0 ML INJ ONE (10:05)
[2017-09-03] MEDS ORDERED: (Novolog Mix 70/30) Insulin Aspart/Insulin Aspar 100 units/ml SC STA (13:00)
[2017-09-03] MEDS ORDERED: Dextrose 50% SYRINGE Inj (50 ml) IVP PRN (13:03)
[2017-09-03] MEDS ORDERED: Glucagon Recombinant 1 mg Inj IM PRN (13:03)
--- NOTE | 2017-09-03 13:57 | CP.PCM.PN ---
Subjective - Date & Time of Evaluation Date of Evaluation: 09/03/17 Time of Evaluation: 13:55 - Subjective Subjective: CHIEF COMPLAINTS TODAY : early this morning I was informed that patient is going to OR for AV shunt revision and anesthesia department once medical clearance because of persistent high sugars since last night. On further review patient had a stress stress test done in April 2017 at [facility], which was nonconclusive for coronary artery disease. ROS. HEENT : N. Resp : No cough, wheezing ,pleuritic CP ,or hemoptysis Cardio : No anginal CP, PND, orthopnea, palpitation GI : No abd.pain, n/v ,diarrhea or GI bleeding . 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 Musculoskel : No joint swelling , Derm : No rash Psych : Normal affect. Ext : No swelling ,calf pain PE. Pt. is alert awake in no distress. V.S As noted in the chart Head ,ear nose,throat and eyes : Normal. Neck : Supple with normal carotids. Lungs: Clear air entry. Heart : S1 & S2 normal with S4. No murmur. Abd : Soft non tender with normal bowel sounds. Neuro : Moves all ext. with no localized deficit. Ext : No edema with intact pulses.Non tender calves Derm : No rashes or decubitus ulcer. LABS/RADIOLOGY: ASSESSMENT/PLAN : persistent high sugars will add Lantus and get endocrine eval. Patient will need a repeat IV Lexiscan for cardiac clearance. Patient is scheduled for tomorrow. The OR is postponed. Objective - Vital Signs/Intake and Output Vital Signs (last 24 hours): Temp Pulse Resp BP Pulse Ox 98.4 F 87 20 135/66 97 09/03/17 07:00 09/03/17 08:59 09/03/17 07:00 09/03/17 07:00 09/03/17 07:00 - Medications Medications: Current Medications Acetaminophen (Tylenol 325mg Tab) 650 mg PO Q4 PRN PRN Reason: Pain, Mild (1-3) Last Admin: 09/03/17 12:40 Dose: 650 mg Amlodipine Besylate (Norvasc) 5 mg PO DAILY [facility] Last Admin: 09/03/17 11:05 Dose: Not Given Aspirin (Aspirin Chewable) 81 mg PO DAILY [facility] Last Admin: 09/03/17 11:04 Dose: Not Given Calcitriol (Rocaltrol) 0.25 mcg PO DAILY [facility] Last Admin: 09/03/17 11:05 Dose: Not Given Carvedilol (Coreg) 25 mg PO BID [facility] Last Admin: 09/03/17 11:04 Dose: Not Given Dextrose (Dextrose 50% Inj) 0 ml IVP .STAT PRN; Protocol PRN Reason: Hypoglycemia Protocol Dextrose (Glutose 15) 0 gm PO .ONCE PRN; Protocol PRN Reason: Hypoglycemia Protocol Epoetin Jose (Procrit) 10,000 unit IV [facility] Glucagon (Glucagen Diagnostic Kit) 0 mg IM .STAT PRN; Protocol PRN Reason: Hypoglycemia Protocol Heparin Sodium (Porcine) (Heparin) 5,000 units SC Q12 [facility] Last Admin: 09/02/17 22:12 Dose: 5,000 units Heparin Sodium (Porcine) (Heparin) 3,700 units IVP [facility] Stop: 09/12/17 09:01 Last Admin: 09/02/17 17:26 Dose: 3,700 units Dextrose (Dextrose 5% In Water 1000 Ml) 1,000 mls @ 0 mls/hr IV .Q0M PRN; Protocol; Per Protocol PRN Reason: Hypoglycemia Protocol Insulin Aspart (Novolog Mix 70/30 (70/30 Units/Ml)) 30 units SC ACBD [facility] Insulin Human Regular (Novolin R) 0 unit SC ACHS [facility] PRN Reason: Protocol Last Admin: 09/03/17 13:38 Dose: 12 units Oxycodone/Acetaminophen (Percocet 5/325 Mg Tab) 2 tab PO Q4H PRN PRN Reason: pain Stop: 09/04/17 15:13 Last Admin: 09/01/17 20:24 Dose: 2 tab Pneumococcal Polyvalent Vaccine (Pneumovax 23 Vaccine) 0.5 ml IM .ONCE ONE Stop: 09/04/17 10:01 - Labs Labs: 09/02/17 07:31 09/03/17 09:04 PT 10.1 SECONDS (9.7-12.2) 09/01/17 09:55 INR 0.9 09/01/17 09:55 APTT 29 SECONDS (21-34) 09/01/17 09:55
--- NOTE | 2017-09-03 15:11 | CP.PCM.PN ---
Subjective - Date & Time of Evaluation Date of Evaluation: 09/03/17 Time of Evaluation: 15:08 - Subjective Subjective: seen on dialysis to UF 1000ml BP stable AV graft cancelled- likely to be done 09/04 BSs being controlled no n, v, f, chill, diarrhea Objective - Vital Signs/Intake and Output Vital Signs (last 24 hours): Temp Pulse Resp BP Pulse Ox 98.5 F 79 16 126/70 99 09/03/17 14:40 09/03/17 14:40 09/03/17 14:40 09/03/17 14:40 09/03/17 14:40 Intake and Output: 09/03/17 09/03/17 06:59 18:59 Intake Total 300 Balance 300 - Medications Medications: Current Medications Acetaminophen (Tylenol 325mg Tab) 650 mg PO Q4 PRN PRN Reason: Pain, Mild (1-3) Last Admin: 09/03/17 12:40 Dose: 650 mg Amlodipine Besylate (Norvasc) 5 mg PO DAILY [facility] Last Admin: 09/03/17 11:05 Dose: Not Given Aspirin (Aspirin Chewable) 81 mg PO DAILY [facility] Last Admin: 09/03/17 11:04 Dose: Not Given Calcitriol (Rocaltrol) 0.25 mcg PO DAILY [facility] Last Admin: 09/03/17 11:05 Dose: Not Given Carvedilol (Coreg) 25 mg PO BID [facility] Last Admin: 09/03/17 11:04 Dose: Not Given Dextrose (Dextrose 50% Inj) 0 ml IVP .STAT PRN; Protocol PRN Reason: Hypoglycemia Protocol Dextrose (Glutose 15) 0 gm PO .ONCE PRN; Protocol PRN Reason: Hypoglycemia Protocol Epoetin Jose (Procrit) 10,000 unit IV [facility] Glucagon (Glucagen Diagnostic Kit) 0 mg IM .STAT PRN; Protocol PRN Reason: Hypoglycemia Protocol Heparin Sodium (Porcine) (Heparin) 5,000 units SC Q12 [facility] Last Admin: 09/02/17 22:12 Dose: 5,000 units Heparin Sodium (Porcine) (Heparin) 3,700 units IVP [facility] Stop: 09/12/17 09:01 Last Admin: 09/02/17 17:26 Dose: 3,700 units Dextrose (Dextrose 5% In Water 1000 Ml) 1,000 mls @ 0 mls/hr IV .Q0M PRN; Protocol; Per Protocol PRN Reason: Hypoglycemia Protocol Insulin Aspart (Novolog) 12 unit SC AC [facility] Insulin Glargine (Lantus) 24 unit SC HS [facility] Oxycodone/Acetaminophen (Percocet 5/325 Mg Tab) 2 tab PO Q4H PRN PRN Reason: pain Stop: 09/04/17 15:13 Last Admin: 09/01/17 20:24 Dose: 2 tab Pneumococcal Polyvalent Vaccine (Pneumovax 23 Vaccine) 0.5 ml IM .ONCE ONE Stop: 09/04/17 10:01 - Labs Labs: 09/02/17 07:31 09/03/17 09:04 PT 10.1 SECONDS (9.7-12.2) 09/01/17 09:55 INR 0.9 09/01/17 09:55 APTT 29 SECONDS (21-34) 09/01/17 09:55 - Constitutional Appears: No Acute Distress, Chronically Ill - Head Exam Head Exam: ATRAUMATIC, NORMAL INSPECTION - Eye Exam Eye Exam: EOMI, Normal appearance - Neck Exam Neck Exam: Normal Inspection. absent: Tenderness - Respiratory Exam Respiratory Exam: Clear to Ausculation Bilateral, NORMAL BREATHING PATTERN - GI/Abdominal Exam GI & Abdominal Exam: Soft. absent: Tenderness - Extremities Exam Extremities Exam: Normal Inspection, Tenderness - Neurological Exam Neurological Exam: Alert, CN II-XII Intact - Skin Skin Exam: Dry, Warm Assessment and Plan (1) Type 2 diabetes mellitus with diabetic nephropathy Status: Acute (2) CKD (chronic kidney disease) stage 5, GFR less than 15 ml/min Status: Acute (3) End stage renal disease Status: Acute (4) Failure of hemodialysis access Status: Acute - Assessment and Plan (Free Text) Plan: baylee MANN BS management AV G in AM outpt dialysis placement
[2017-09-03] MEDS ORDERED: (Novolog Mix 70/30) Insulin Aspart/Insulin Aspar 100 units/ml SC SCH (16:30)
[2017-09-03] MEDS: (Novolog) Insulin Aspart, Recombinant 100 u/ml 10 ml vial SC SCH ×3 (16:44→22:07)
[2017-09-03] MEDS: Epoetin Alfa 10,000 unit/ml Dialysis IV SCH (17:33)
[2017-09-03] MEDS ORDERED: (Lantus) Insulin Glargine, Recombinant SC SCH (22:00)
[2017-09-04] MEDS: (Novolog) Insulin Aspart, Recombinant 100 u/ml 10 ml vial SC SCH ×7 (08:54→22:35)
[2017-09-04] MEDS ORDERED: (Novolog) Insulin Aspart, Recombinant 100 u/ml 10 ml vial SC STA ×2 (08:55→12:21)
--- NOTE | 2017-09-04 08:55 | CON ---
DATE: 09/03/2017 ENDOCRINOLOGY FOLLOWUP NOTE LOCATION: Room 662. HISTORY OF PRESENT ILLNESS: This is a 52-year-old female with known history of type 2 insulin-requiring diabetes, presenting here with progressive renal insufficiency and being scheduled for a PermCath insertion following a recent AV shunt revision. She is being referred now for diabetic evaluation because of marked hyperglycemic accelerations as noted thereof. PAST MEDICAL HISTORY: As mentioned above, history of type 2 insulin-requiring diabetes, currently on a combination of a premixed insulin regimen using Humalog 75/25. Humalog 75/25 given as 60 units b.i.d. before meals as given. History of hypertension and dyslipidemia, history of diabetic retinopathy, polyneuropathy and nephropathy with end-stage renal disease and dialysis dependent, history of coronary artery disease and peripheral arterial disease and vasculopathy. PAST SURGICAL HISTORY: She also has a left ankle fracture and underwent an open reduction and internal fixation procedure as noted. She also had two prior C-sections as noted. FAMILY HISTORY: Positive for diabetes and hypertension. SOCIAL HISTORY: The patient has a supportive family, no known substance use. REVIEW OF SYSTEMS: As mentioned above, admits to episodic bouts of dizziness and lightheadedness with bifrontal headaches and visual blurring. Also admits to suboptimal energy level with easy fatigability and tiredness as noted. No chest pain or palpitations or PNDs. Her oral intake has been variable with nausea, dyspepsia, and vague upper abdominal pains with habitual constipation. She also admits to lower extremity paresthesias, especially nocturnally. PHYSICAL EXAMINATION: GENERAL: This is an overweight female, in no apparent distress. VITAL SIGNS: Blood pressure of 140/80, pulse of 70 beats per minute and regular, temperature 98, respirations 20. Height is 5 feet 3 inches, weight is 204 pounds. HEENT: Head normocephalic. Eyes anicteric with pink conjunctivae. Funduscopy is not possible at this time. Ears, nose, and throat, otherwise, normal. NECK: Supple. Thyroid gland is normal in size. No carotid bruits or any cervical adenopathy. CARDIOPULMONARY: Some adynamic precordium. S1 and S2 is rapid and regular. LUNGS: Clear to auscultation. ABDOMEN: Flat, soft with positive bowel sounds. EXTREMITIES: No peripheral edema. Pulses are +2 bilaterally. LABORATORY DATA: The chemistries are pending at this time with the latest glucose values have all been over 500 mg/dL done four times today as noted. ASSESSMENT: This is a 52-year-old female with uncontrolled and decompensated type 2 insulin-requiring diabetes with marked hyperglycemic accelerations related to the withholding of the morning insulin regimen today and also a subtherapeutic insulin combinations given. She also has diabetic microvascular complications of retinopathy, polyneuropathy, and nephropathy with end-stage renal disease and dialysis dependence. She also has diabetic macrovascular complications of coronary artery disease and peripheral arterial disease and vasculopathy. PLAN OF MANAGEMENT: We will modify her current insulin regimen to a more physiologic basal and bolus insulin drug combination to obviate extremes of glycemic fluctuations from hypoglycemic to hyperglycemic accelerations as noted. We will start her with Novolog given as 12 units subcu three times a day before meals to start at dinner time today as ordered. We will also add basal insulin with Lantus to be given as 24 units subcu at bedtime daily to start tonight. We will modify the coverage scale to a very low dose algorithm using Novolog insulin to obviate hypoglycemia and detailed orders have been given. We will titrate incremental as indicated to optimize metabolic control. We will also obtain a hemoglobin A1c to confirm her prior glycemic control and baseline thyroid function studies would be ordered. We will obtain a parathyroid hormone intact level to screen for underlying secondary hyperparathyroidism. We will follow and advise accordingly. Lynsey Jordan MD
[2017-09-04] MEDS ORDERED: Pneumococcal 23-Valent Vaccine IM ONE (10:00)
--- NOTE | 2017-09-04 10:35 | CP.PCM.PN ---
Subjective - Date & Time of Evaluation Date of Evaluation: 09/04/17 Time of Evaluation: 10:33 - Subjective Subjective: stable dialysis 09/03 BSs better controlled fell better, no new complaint ferritin low- will add IV Fe told of need for EST prior to AV graft Objective - Vital Signs/Intake and Output Vital Signs (last 24 hours): Temp Pulse Resp BP Pulse Ox 98.3 F 79 20 129/68 100 09/04/17 09:22 09/04/17 09:22 09/04/17 09:22 09/04/17 09:29 09/04/17 09:22 Intake and Output: 09/04/17 09/04/17 06:59 18:59 Intake Total 300 Balance 300 - Medications Medications: Current Medications Acetaminophen (Tylenol 325mg Tab) 650 mg PO Q4 PRN PRN Reason: Pain, Mild (1-3) Last Admin: 09/04/17 00:10 Dose: 650 mg Amlodipine Besylate (Norvasc) 5 mg PO DAILY [facility] Last Admin: 09/03/17 11:05 Dose: Not Given Aspirin (Aspirin Chewable) 81 mg PO DAILY [facility] Last Admin: 09/03/17 11:04 Dose: Not Given Calcitriol (Rocaltrol) 0.25 mcg PO DAILY [facility] Last Admin: 09/03/17 11:05 Dose: Not Given Carvedilol (Coreg) 25 mg PO BID [facility] Last Admin: 09/04/17 09:29 Dose: 25 mg Dextrose (Dextrose 50% Inj) 0 ml IVP .STAT PRN; Protocol PRN Reason: Hypoglycemia Protocol Dextrose (Glutose 15) 0 gm PO .ONCE PRN; Protocol PRN Reason: Hypoglycemia Protocol Epoetin Jose (Procrit) 10,000 unit IV [facility] [place] Last Admin: 09/03/17 17:33 Dose: 10,000 unit Glucagon (Glucagen Diagnostic Kit) 0 mg IM .STAT PRN; Protocol PRN Reason: Hypoglycemia Protocol Heparin Sodium (Porcine) (Heparin) 5,000 units SC Q12 [facility] Last Admin: 09/02/17 22:12 Dose: 5,000 units Heparin Sodium (Porcine) (Heparin) 3,700 units IVP [facility] [place] [facility] Stop: 09/12/17 09:01 Last Admin: 09/03/17 17:34 Dose: 3,700 units Dextrose (Dextrose 5% In Water 1000 Ml) 1,000 mls @ 0 mls/hr IV .Q0M PRN; Protocol; Per Protocol PRN Reason: Hypoglycemia Protocol Insulin Aspart (Novolog) 12 unit SC AC [facility] Last Admin: 09/04/17 08:54 Dose: Not Given Insulin Aspart (Novolog) 0 unit SC ACHS [facility] Last Admin: 09/04/17 08:54 Dose: Not Given Insulin Glargine (Lantus) 24 unit SC HS [facility] Last Admin: 09/03/17 22:14 Dose: 24 units Oxycodone/Acetaminophen (Percocet 5/325 Mg Tab) 2 tab PO Q4H PRN PRN Reason: pain Stop: 09/04/17 15:13 Last Admin: 09/01/17 20:24 Dose: 2 tab - Labs Labs: 09/02/17 07:31 09/03/17 09:04 PT 10.1 SECONDS (9.7-12.2) 09/01/17 09:55 INR 0.9 09/01/17 09:55 APTT 29 SECONDS (21-34) 09/01/17 09:55 - Constitutional Appears: No Acute Distress, Chronically Ill - Head Exam Head Exam: ATRAUMATIC, NORMAL INSPECTION - Eye Exam Eye Exam: EOMI, Normal appearance - Neck Exam Neck Exam: Normal Inspection. absent: Tenderness - Respiratory Exam Respiratory Exam: Clear to Ausculation Bilateral, NORMAL BREATHING PATTERN - Cardiovascular Exam Cardiovascular Exam: REGULAR RHYTHM, +S1 - GI/Abdominal Exam GI & Abdominal Exam: Soft. absent: Tenderness - Extremities Exam Extremities Exam: Normal Inspection. absent: Tenderness - Neurological Exam Neurological Exam: Alert, CN II-XII Intact - Skin Skin Exam: Dry, Warm Assessment and Plan (1) Type 2 diabetes mellitus with diabetic nephropathy Status: Acute (2) CKD (chronic kidney disease) stage 5, GFR less than 15 ml/min Status: Acute (3) End stage renal disease Status: Acute (4) Failure of hemodialysis access Status: Acute - Assessment and Plan (Free Text) Plan: IV Fe Dialysis MWF EST pending Then AV graft
--- NOTE | 2017-09-04 12:18 | CP.PCM.PN ---
Subjective - Date & Time of Evaluation Date of Evaluation: 09/04/17 Time of Evaluation: 12:18 - Subjective Subjective: CHIEF COMPLAINTS TODAY : Early this morning patient had headaches pain in the neck and arms which is relieved with Tylenol. No fever no nausea or vomiting. Permacath placed ROS. HEENT : N. Resp : No cough, wheezing ,pleuritic CP ,or hemoptysis Cardio : No anginal CP, PND, orthopnea, palpitation GI : No abd.pain, n/v ,diarrhea or GI bleeding . 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 Musculoskel : No joint swelling , Derm : No rash Psych : Normal affect. Ext : No swelling ,calf pain PE. Pt. is alert awake in no distress. V.S As noted in the chart Head ,ear nose,throat and eyes : Normal. Neck : Supple with normal carotids. Lungs: Clear air entry. Heart : S1 & S2 normal with S4. No murmur. Abd : Soft non tender with normal bowel sounds. Neuro : Moves all ext. with no localized deficit. Ext : No edema with intact pulses.Non tender calves Derm : No rashes or decubitus ulcer. LABS/RADIOLOGY: ASSESSMENT/PLAN : patient's sugars are still in the 300. Patient for IV Lexiscan today. OR on hold. Objective - Vital Signs/Intake and Output Vital Signs (last 24 hours): Temp Pulse Resp BP Pulse Ox 98.3 F 79 20 129/68 100 09/04/17 09:22 09/04/17 09:22 09/04/17 09:22 09/04/17 09:29 09/04/17 09:22 - Medications Medications: Current Medications Acetaminophen (Tylenol 325mg Tab) 650 mg PO Q4 PRN PRN Reason: Pain, Mild (1-3) Last Admin: 09/04/17 00:10 Dose: 650 mg Amlodipine Besylate (Norvasc) 5 mg PO DAILY [facility] Last Admin: 09/04/17 10:39 Dose: Not Given Aspirin (Aspirin Chewable) 81 mg PO DAILY [facility] Last Admin: 09/04/17 10:38 Dose: Not Given Calcitriol (Rocaltrol) 0.25 mcg PO DAILY [facility] Last Admin: 09/04/17 10:39 Dose: Not Given Carvedilol (Coreg) 25 mg PO BID [facility] Last Admin: 09/04/17 09:29 Dose: 25 mg Dextrose (Dextrose 50% Inj) 0 ml IVP .STAT PRN; Protocol PRN Reason: Hypoglycemia Protocol Dextrose (Glutose 15) 0 gm PO .ONCE PRN; Protocol PRN Reason: Hypoglycemia Protocol Epoetin Jose (Procrit) 10,000 unit IV [facility] Last Admin: 09/03/17 17:33 Dose: 10,000 unit Ferric Sodium Gluconate Complex (Ferrlecit) 125 mg IVPB DAILY [facility] Stop: 09/10/17 10:01 Glucagon (Glucagen Diagnostic Kit) 0 mg IM .STAT PRN; Protocol PRN Reason: Hypoglycemia Protocol Heparin Sodium (Porcine) (Heparin) 5,000 units SC Q12 [facility] Last Admin: 09/02/17 22:12 Dose: 5,000 units Heparin Sodium (Porcine) (Heparin) 3,700 units IVP [facility] Stop: 09/12/17 09:01 Last Admin: 09/03/17 17:34 Dose: 3,700 units Dextrose (Dextrose 5% In Water 1000 Ml) 1,000 mls @ 0 mls/hr IV .Q0M PRN; Protocol; Per Protocol PRN Reason: Hypoglycemia Protocol Insulin Aspart (Novolog) 12 unit SC AC [facility] Last Admin: 09/04/17 11:59 Dose: Not Given Insulin Aspart (Novolog) 0 unit SC ACHS [facility] Last Admin: 09/04/17 11:59 Dose: Not Given Insulin Glargine (Lantus) 24 unit SC HS [facility] Last Admin: 09/03/17 22:14 Dose: 24 units Oxycodone/Acetaminophen (Percocet 5/325 Mg Tab) 2 tab PO Q4H PRN PRN Reason: pain Stop: 09/04/17 15:13 Last Admin: 09/01/17 20:24 Dose: 2 tab - Labs Labs: 09/02/17 07:31 09/03/17 09:04 PT 10.1 SECONDS (9.7-12.2) 09/01/17 09:55 INR 0.9 09/01/17 09:55 APTT 29 SECONDS (21-34) 09/01/17 09:55
[2017-09-04] MEDS ORDERED: Aminophylline 25 mg/ml Inj ONE (14:27)
--- NOTE | 2017-09-04 19:29 | CARD ---
APPROVED REPORT Protocol: LEXISCAN Test Type: LEXISCAN STRESS Test Indications: PRE OP Medications: LIST Target HR: 170 bpm Resting Heart Rate: 82 bpm Resting Blood Pressure: 136/80mmHg submaximum (85%): 145 bpm TEST SUMMARY [id number]:02..1.0./.0. PREINFSNHYPERV.113:[id number]/80.0. INFUSIONDOSE 100:300.00.01.087/.0. [id number]/80.0. PROCEDURE Pharmacologic stress testing was performed using Dobutamine with a maximal infusion of mcg/mg/min. Reversal agent aminophyline 100 mg, given intravenously for Headache. POST EXERCISE Target HR: No Max HR: 87 bpm 53% of Maximum Predicted HR: 170 bpm Exercise duration: 00:30 min:sec, 0 Stage Exercise capacity: 1.0METs Max Blood Pressure: 136/80mmHg Chest Pain: Yes, Angina index: 0 Arrhythmia: Yes, ST Change: Yes, Deviation: 0 mm EXAM: Myocardial Perfusion REST/STRESS Imaging Protocol The imaging protocol used to acquire images was Rest Tc-99m/stress Tc-99m 1 day Rest Spect myocardial perfusion imaging was performed in supine position 45 minutes following the injection of 12.5 mCi of Tc-99 Myoview. Gated Stress Spect was performed 65 minutes after intravenous 32.4 mci Tc-99 Myoview injection. The images were gated to evaluate regional wall motion and calculate ventricular ejection fraction.Images were reconstructed using backfilter projection method in short horizontal and verticle long axis. Spect slices were generated. RESTING DATA EDV72.18laNA3.70L/min ESV20.00mlMyocardial Xzmf770.00g Av. Heart Rate72.00bpm EF72.00% STRESS DATA EDV63.33elNH2.80L/min ESV17.00mlMyocardial Jvas489.00g EF73.00% Regional WT score at stress:2.00 Regional WM score at stress:0.00 Summed WT score at stress:14.00 Av. Heart Rate83.00bpmSummed WM score at stress:6.00 LV Perf. Quant 17 Seg. SSS1.00 17 Seg. SRS1.00 17 Seg. SDS1.00 Stress Defect Extent (% LAD)Rest Defect Extent (% LAD)Rev. Defect Extent (% LAD)0.00 Stress Defect Extent (% LCX)Rest Defect Extent (% LCX)Rev. Defect Extent (% LCX)0.00 Stress Defect Extent (% RCA)Rest Defect Extent (% RCA)Rev. Defect Extent (% RCA)0.00 Stress Defect Extent (% TYRA)Rest Defect Extent (% TYRA)Rev. Defect Extent (% TYRA)0.00 Conclusion 1. NORMAL IV LEXISCAN MYOVIEW STUDY 2. HOMOGENOUS MYOCARDIAL UPTAKE OF RADIONUCLEIDE WITH NO PHOTOPENIC SEGMENTS AT REST OR EXERSICE 3. NORMAL LV EF , 63%
--- NOTE | 2017-09-04 19:32 | CP.PCM.PCO ---
Physician Communication Note - Physician Communication Note Physician Communication Note: PT. IS MEDICALLY CLEARED FOR OR IN AM FOR A-V SHUNT SURGERY
--- NOTE | 2017-09-04 19:44 | PN ---
DATE: 09/04/2017 ENDO FOLLOWUP NOTE LOCATION: In room 662. SUBJECTIVE: This is a 52-year-old female with recent uncontrolled type 2 insulin-requiring diabetes, presenting here with marked hyperglycemic accelerations despite the high dose insulin regimen as given and is now being followed closely for metabolic management. She also has a Perma-Cath insertion after a prior failed AV shunt revision as noted. She is scheduled today for a cardiac stress test and so the insulin regimen has been withheld as noted with expected hyperglycemic accelerations as noted thereof. Her glucose values today are still elevated ranging from 304 to 329 and 332 mg/dL. The latest chemistry showed a BUN of 47, sodium 136, potassium 3.7, chloride 95, CO2 of 29, glucose 404 and creatinine 3.4. Her parathyroid hormone level is 97. ASSESSMENT: This is a 52-year-old female with uncontrolled and decompensated type 2 insulin-requiring diabetes with marked hyperglycemic accelerations despite the very hefty premixed insulin regimen given as an outpatient. She also has diabetic microvascular complications of retinopathy, polyneuropathy and nephropathy with end-stage renal disease and dialysis dependence. She also has diabetic microvascular complications of coronary artery disease and peripheral arterial disease and vasculopathy. PLAN OF MANAGEMENT: As discussed with the nursing staff, we will modify once again the current insulin regimen, but because they held off the scheduled dose because of the n.p.o. status of the patient, we have been giving her only bolus doses of rapid acting Novolog insulin as given. After the completion of the stress test, we will restart her back on her more physiologic basal and bolus insulin drug combination as ordered. We will start her with Novolog given as 12 units subcu t.i.d. before meals to start today as ordered. We have actually been titrating and increasing her Lantus to 30 units subcu at bedtime daily to start today. We will titrate incremental as indicated to optimize metabolic control. We will obtain serial chemistries and supplement accordingly as needed. We will follow with you. Lynsey Jordan MD
[2017-09-04] MEDS ORDERED: (Lantus) Insulin Glargine, Recombinant SC SCH (22:00)
[2017-09-05 07:05] LABS: ALB/GLOB RATIO 1.2 (1.0-2.1); ALBUMIN 3.6 g/dL (3.5-5.0); CALCIUM 7.4 mg/dl (8.6-10.4)
[2017-09-05] MEDS: (Novolog) Insulin Aspart, Recombinant 100 u/ml 10 ml vial SC SCH ×7 (08:30→16:56)
[2017-09-05 09:30] LABS: HEMOGLOBIN 9.2 g/dL (11.0-16.0); MEAN CELL VOLUME 83.4 fL (81.0-99.0); MEAN CORPUSCULAR HEMOGLOBIN 29.1 pg (27.0-31.0); MEAN CORPUSCULAR HGB CONC 34.8 g/dL (33.0-37.0); MEAN PLATELET VOLUME 8.1 fL (7.2-11.7); RBC 3.18 Mil/uL (3.80-5.20); RED CELL DISTRIBUTION WIDTH 12.8 % (11.5-14.5); WHITE BLOOD COUNT 10.7 K/uL (4.8-10.8)
[2017-09-05 09:41] LABS: PROTHROMBIN TIME 10.7 SECONDS (9.7-12.2)
[2017-09-05] MEDS: Ferric Sodium Gluconat Complex 62.5 mg/5 ml Vial IVPB SCH ×3 (09:55→12:39)
[2017-09-05] MEDS: Epoetin Alfa 10,000 unit/ml Dialysis IV SCH (10:35)
[2017-09-05] MEDS ORDERED: Epoetin Alfa 10,000 unit/ml Dialysis IV SCH (11:15)
[2017-09-05 12:28] VITALS: RESP 20
--- NOTE | 2017-09-05 13:05 | CP.PCM.PN ---
Subjective - Date & Time of Evaluation Date of Evaluation: 09/05/17 Time of Evaluation: 13:02 - Subjective Subjective: s/p dialysis now s/p EST - reportedly negative feels better tolerating dialysis well no n, v, f, chills, SOB Objective - Vital Signs/Intake and Output Vital Signs (last 24 hours): Temp Pulse Resp BP Pulse Ox 97.7 F 77 20 135/68 97 09/05/17 12:10 09/05/17 13:02 09/05/17 12:10 09/05/17 13:02 09/05/17 12:10 Intake and Output: 09/05/17 09/05/17 06:59 18:59 Intake Total 320 Balance 320 - Medications Medications: Current Medications Acetaminophen (Tylenol 325mg Tab) 650 mg PO Q4 PRN PRN Reason: Pain, Mild (1-3) Last Admin: 09/05/17 12:37 Dose: 650 mg Amlodipine Besylate (Norvasc) 5 mg PO DAILY [facility] Last Admin: 09/05/17 09:56 Dose: Not Given Aspirin (Aspirin Chewable) 81 mg PO DAILY [facility] Last Admin: 09/05/17 09:55 Dose: Not Given Calcitriol (Rocaltrol) 0.25 mcg PO DAILY [facility] Last Admin: 09/05/17 09:56 Dose: Not Given Carvedilol (Coreg) 25 mg PO BID [facility] Last Admin: 09/05/17 09:55 Dose: Not Given Dextrose (Dextrose 50% Inj) 0 ml IVP .STAT PRN; Protocol PRN Reason: Hypoglycemia Protocol Dextrose (Glutose 15) 0 gm PO .ONCE PRN; Protocol PRN Reason: Hypoglycemia Protocol Epoetin Jose (Procrit) 10,000 unit IV MWF [facility] Ferric Sodium Gluconate Complex (Ferrlecit) 125 mg IVPB DAILY [facility] Stop: 09/10/17 10:01 Last Admin: 09/05/17 12:39 Dose: 125 mg Glucagon (Glucagen Diagnostic Kit) 0 mg IM .STAT PRN; Protocol PRN Reason: Hypoglycemia Protocol Heparin Sodium (Porcine) (Heparin) 5,000 units SC Q12 [facility] Last Admin: 09/02/17 22:12 Dose: 5,000 units Dextrose (Dextrose 5% In Water 1000 Ml) 1,000 mls @ 0 mls/hr IV .Q0M PRN; Protocol; Per Protocol PRN Reason: Hypoglycemia Protocol Insulin Aspart (Novolog) 12 unit SC AC [facility] Last Admin: 09/05/17 08:43 Dose: 12 units Insulin Aspart (Novolog) 0 unit SC ACHS [facility] Last Admin: 09/05/17 08:30 Dose: Not Given Insulin Glargine (Lantus) 30 unit SC HS [facility] Last Admin: 09/04/17 22:35 Dose: 30 u - Labs Labs: 09/05/17 09:26 09/05/17 06:34 PT 10.7 SECONDS (9.7-12.2) 09/05/17 09:26 INR 1.0 09/05/17 09:26 APTT 26 SECONDS (21-34) 09/05/17 09:26 - Constitutional Appears: No Acute Distress, Chronically Ill - Head Exam Head Exam: ATRAUMATIC, NORMAL INSPECTION - Eye Exam Eye Exam: EOMI, Normal appearance - Neck Exam Neck Exam: Normal Inspection. absent: Tenderness - Respiratory Exam Respiratory Exam: Clear to Ausculation Bilateral, NORMAL BREATHING PATTERN - Cardiovascular Exam Cardiovascular Exam: REGULAR RHYTHM, +S1 - GI/Abdominal Exam GI & Abdominal Exam: Soft. absent: Tenderness - Extremities Exam Extremities Exam: Normal Inspection. absent: Tenderness - Neurological Exam Neurological Exam: Alert, CN II-XII Intact - Skin Skin Exam: Dry, Warm Assessment and Plan (1) Type 2 diabetes mellitus with diabetic nephropathy Status: Acute (2) CKD (chronic kidney disease) stage 5, GFR less than 15 ml/min Status: Acute (3) End stage renal disease Status: Acute (4) Failure of hemodialysis access Status: Acute - Assessment and Plan (Free Text) Plan: dialysis MWF AV graft today will be placed in [facility]
--- NOTE | 2017-09-05 14:06 | CP.PCM.PN ---
Subjective - Date & Time of Evaluation Date of Evaluation: 09/05/17 Time of Evaluation: 14:04 - Subjective Subjective: CHIEF COMPLAINTS TODAY : patient had an IV Lexiscan Myoview stress test yesterday. There is no evidence of any inducible ischemia. Left ventricle ejection fraction is 63% Patient is for OR today ROS. HEENT : N. Resp : No cough, wheezing ,pleuritic CP ,or hemoptysis Cardio : No anginal CP, PND, orthopnea, palpitation GI : No abd.pain, n/v ,diarrhea or GI bleeding . [employer] : No headache, vertigo, focal deficit. Musculoskel : No joint swelling , Derm : No rash Psych : Normal affect. Ext : No swelling ,calf pain PE. Pt. is alert awake in no distress. V.S As noted in the chart Head ,ear nose,throat and eyes : Normal. Neck : Supple with normal carotids. Lungs: Clear air entry. Heart : S1 & S2 normal with S4. No murmur. Abd : Soft non tender with normal bowel sounds. Neuro : Moves all ext. with no localized deficit. Ext : No edema with intact pulses.Non tender calves . Shunt has no thrill or murmur Derm : No rashes or decubitus ulcer. LABS/RADIOLOGY: ASSESSMENT/PLAN : patient had a dialysis today with no complication AV shunt revision today in the OR Objective - Vital Signs/Intake and Output Vital Signs (last 24 hours): Temp Pulse Resp BP Pulse Ox 97.7 F 77 20 135/68 97 09/05/17 12:10 09/05/17 13:02 09/05/17 12:10 09/05/17 13:02 09/05/17 12:10 - Medications Medications: Current Medications Acetaminophen (Tylenol 325mg Tab) 650 mg PO Q4 PRN PRN Reason: Pain, Mild (1-3) Last Admin: 09/05/17 12:37 Dose: 650 mg Amlodipine Besylate (Norvasc) 5 mg PO DAILY [facility] Last Admin: 09/05/17 13:03 Dose: 5 mg Aspirin (Aspirin Chewable) 81 mg PO DAILY [facility] Last Admin: 09/05/17 09:55 Dose: Not Given Calcitriol (Rocaltrol) 0.25 mcg PO DAILY [facility] Last Admin: 09/05/17 09:56 Dose: Not Given Carvedilol (Coreg) 25 mg PO BID [facility] Last Admin: 09/05/17 09:55 Dose: Not Given Dextrose (Dextrose 50% Inj) 0 ml IVP .STAT PRN; Protocol PRN Reason: Hypoglycemia Protocol Dextrose (Glutose 15) 0 gm PO .ONCE PRN; Protocol PRN Reason: Hypoglycemia Protocol Epoetin Jose (Procrit) 10,000 unit IV MWF [facility] Ferric Sodium Gluconate Complex (Ferrlecit) 125 mg IVPB DAILY [facility] Stop: 09/10/17 10:01 Last Admin: 09/05/17 12:39 Dose: 125 mg Glucagon (Glucagen Diagnostic Kit) 0 mg IM .STAT PRN; Protocol PRN Reason: Hypoglycemia Protocol Heparin Sodium (Porcine) (Heparin) 5,000 units SC Q12 [facility] Last Admin: 09/02/17 22:12 Dose: 5,000 units Dextrose (Dextrose 5% In Water 1000 Ml) 1,000 mls @ 0 mls/hr IV .Q0M PRN; Protocol; Per Protocol PRN Reason: Hypoglycemia Protocol Insulin Aspart (Novolog) 12 unit SC AC [facility] Last Admin: 09/05/17 12:45 Dose: Not Given Insulin Aspart (Novolog) 0 unit SC ACHS [facility] Last Admin: 09/05/17 12:45 Dose: Not Given Insulin Glargine (Lantus) 30 unit SC HS [facility] Last Admin: 09/04/17 22:35 Dose: 30 u - Labs Labs: 09/05/17 09:26 09/05/17 06:34 PT 10.7 SECONDS (9.7-12.2) 09/05/17 09:26 INR 1.0 09/05/17 09:26 APTT 26 SECONDS (21-34) 09/05/17 09:26
[2017-09-05 16:23] VITALS: BP 134/72; PULSE 73; TEMP 98.6; O2SAT 96
--- NOTE | 2017-09-05 20:34 | PN ---
DATE: 09/05/2017 ENDOCRINOLOGY FOLLOWUP NOTE LOCATION: Room 657. SUBJECTIVE: This is a 52-year-old female with recent uncontrolled type 2 insulin requiring diabetes, now being followed closely for metabolic management. She underwent a revision of the AV shunt today as noted, and her glycemic fluctuations are slowly improving as noted overnight. Her glucose levels today have ranged from 150 to 243 mg/dL. Her chemistries showed a BUN of 42, sodium 137, potassium 3.6, chloride 96, CO2 of 27, glucose 231, and creatinine 3.7. Her hemoglobin A1c is 12%, which is quite elevated and indicative of suboptimal metabolic control of her diabetic condition even prior to this admission. So at this time, we will continue the same basal and bolus insulin regimen to allow for dose equilibration and keep her on the NovoLog given as 12 units subcutaneous t.i.d. before meals as ordered. We will continue the basal insulin given as Lantus at 30 units subcutaneous at bedtime daily as given. We will titrate incrementally as indicated to optimize metabolic control. We will continue also the low dose correction scale using NovoLog insulin as given. We will obtain serial chemistries and supplement accordingly as needed. We will follow with you. Lynsey Jordan MD
--- NOTE | 2017-09-06 15:05 | CP.PCM.DIS ---
Provider - Provider Date of Admission: 09/01/17 10:50 Attending physician: Leigha Manzano MD Time Spent in preparation of Discharge (in minutes): 35 Hospital Course - Lab Results Lab Results: Most Recent Lab Values WBC 10.7 K/uL (4.8-10.8) 09/05/17 09:26 RBC 3.18 Mil/uL (3.80-5.20) L 09/05/17 09:26 Hgb 9.2 g/dL (11.0-16.0) L 09/05/17 09:26 Hct 26.5 % (34.0-47.0) L 09/05/17 09: MCV 83.4 fL (81.0-99.0) 09/05/17 09: MCH 29.1 pg (27.0-31.0) 09/05/17 09: MCHC 34.8 g/dL (33.0-37.0) 09/05/17 09: RDW 12.8 % (11.5-14.5) 09/05/17 09: Plt Count 278 K/uL (130-400) 09/05/17 09:26 MPV 8.1 fL (7.2-11.7) 09/05/17 09:26 Neut % (Auto) 70.3 % (50.0-75.0) 09/02/17 07:31 Lymph % (Auto) 23.0 % (20.0-40.0) 09/02/17 07:31 [place] % (Auto) 5.1 % (0.0-10.0) 09/02/17 07:31 Eos % (Auto) 1.1 % (0.0-4.0) 09/02/17 07:31 Baso % (Auto) 0.5 % (0.0-2.0) 09/02/17 07:31 Neut # (Auto) 7.6 K/uL (1.8-7.0) H 09/02/17 07:31 Lymph # (Auto) 2.5 K/uL (1.0-4.3) 09/02/17 07:31 [place] # (Auto) 0.5 K/uL (0.0-0.8) 09/02/17 07:31 Eos # (Auto) 0.1 K/uL (0.0-0.7) 09/02/17 07:31 Baso # (Auto) 0.1 K/uL (0.0-0.2) 09/02/17 07:31 PT 10.7 SECONDS (9.7-12.2) 09/05/17 09:26 INR 1.0 09/05/17 09:26 APTT 26 SECONDS (21-34) 09/05/17 09:26 Sodium 137 mmol/L (132-148) 09/05/17 06:34 Potassium 3.6 mmol/L (3.6-5.2) 09/05/17 06:34 Chloride 96 mmol/L (98-107) L 09/05/17 06:34 Carbon Dioxide 27 mmol/L (22-30) 09/05/17 06:34 Anion Gap 17 (10-20) 09/05/17 06:34 BUN 42 mg/dL (7-17) H 09/05/17 06:34 Creatinine 3.7 mg/dL (0.7-1.2) H 09/05/17 06:34 Est GFR ( Amer) 16 09/05/17 06:34 Est GFR (Non-Af Amer) 13 09/05/17 06:34 POC Glucose (mg/dL) 181 mg/dL (65-110) H 09/05/17 16:47 Random Glucose 231 mg/dL (65-105) H 09/05/17 06:34 Hemoglobin A1c 12.0 % (4.2-6.5) H 09/05/17 06:34 Calcium 7.4 mg/dl (8.6-10.4) L 09/05/17 06:34 Phosphorus 4.5 mg/dL (2.5-4.5) 09/02/17 14:08 % Saturation 20 (20-55) 09/02/17 14:08 Ferritin 64.9 ng/mL 09/02/17 14:08 Total Bilirubin 0.4 mg/dL (0.2-1.3) 09/05/17 06:34 AST 27 U/L (14-36) 09/05/17 06:34 ALT 17 U/L (9-52) 09/05/17 06:34 Alkaline Phosphatase 107 U/L (38-126) 09/05/17 06:34 Total Protein 6.7 g/dL (6.3-8.3) 09/05/17 06:34 Albumin 3.6 g/dL (3.5-5.0) 09/05/17 06:34 Globulin 3.1 gm/dL (2.2-3.9) 09/05/17 06:34 Albumin/Globulin Ratio 1.2 (1.0-2.1) 09/05/17 06:34 TSH 3rd Generation 1.54 mIU/L (0.46-4.68) 09/05/17 06:34 PTH Intact Whole [place] 97 pg/mL (14-64) H 09/02/17 14:08 Urine HCG, Qual Negative (NEGATIVE) 09/05/17 07:45 Hep Bs Antigen Negative (NEGATIVE) 09/02/17 14:08 Hep Bs Antibody Negative (NEGATIVE) 09/02/17 14:08 Hep B Core IgM Ab Negative (NEGATIVE) 09/02/17 14:08 Hepatitis C Antibody Negative (NEGATIVE) 09/02/17 14:08 - Hospital Course Hospital Course: Patient is admitted for placement of perma catheter. About 2 months ago patient had a AV shunt placed on the left arm and subsequently was admitted last week for dialysis dialysis was incomplete as the graft was not functioning further workup showed that the patient had a clot in the venous side of the graft. Patient was discharged and was supposed to have outpatient thrombectomy. But as per the surgeon patient is going to need a permacath prior to revision of the AV shunt. Patient is a history of diabetic nephropathy with end-stage kidney disease stage V. Patient has not had dialysis since 1 month patient was evaluated for AV shunt repair. Patient had an IV Lexiscan done which showed no ischemia with normal left ventricle ejection fraction 63%. Patient had dialysis through the permacath without any complication. On the day of surgery due to scheduling mix up patient's surgery was postponed until 10 PM the night. Patient decided to go home and come back on Friday, September 08, 2017 Discharge Exam - Head Exam Head Exam: ATRAUMATIC, NORMAL INSPECTION Discharge Plan - Follow Up Plan Condition: STABLE Disposition: HOME/ ROUTINE Instructions: Dialysis Diet , Hemodialysis (DC), End Stage Kidney Disease (DC) , Dialysis Catheter (DC) Additional Instructions: Okay to discharge patient to home with permacath as per Dr. Shetty, attending Dr. Manzano also advises to continue home medications/insulin regimen. Please return next week FridaySeptember 08 (to ER first for admission) for AVF revision at 4p as per Dr. Shetty. Referrals: Leigha Manzano MD [Staff Provider] - Ceferino Shetty MD [Staff Provider] -
== END 2017-09-05 20:15 | disposition home or self-care (01) | DRG 314 ==
LOC: C.ER 09:18 → C.3T 10:50 → C.6T 09-02 16:59
PROVIDERS: ADMIT Internal Medicine Cardiovascular Disease; ATTEND Internal Medicine Cardiovascular Disease
PROC: 02HV33Z Insertion of Infusion Device into Superior Vena Cava, Percutaneous Approach (ICD-10-PCS; principal; 2017-09-01 15:45)
PROC: 5A1D70Z Performance of Urinary Filtration, Intermittent, Less than 6 Hours Per Day (ICD-10-PCS; 2017-09-02)
DX: T82.868A Thrombosis due to vascular prosthetic devices, implants and grafts, initial encounter (principal); N18.6 End stage renal disease; I12.0 Hypertensive chronic kidney disease with stage 5 chronic kidney disease or end stage renal disease; E11.21 Type 2 diabetes mellitus with diabetic nephropathy; E11.22 Type 2 diabetes mellitus with diabetic chronic kidney disease; E11.65 Type 2 diabetes mellitus with hyperglycemia; Y84.1 Kidney dialysis as the cause of abnormal reaction of the patient, or of later complication, without mention of misadventure at the time of the procedure; E11.42 Type 2 diabetes mellitus with diabetic polyneuropathy; E78.00 Pure hypercholesterolemia, unspecified; G35 Multiple sclerosis; Z99.2 Dependence on renal dialysis; E11.51 Type 2 diabetes mellitus with diabetic peripheral angiopathy without gangrene; Z53.8 Procedure and treatment not carried out for other reasons; D64.9 Anemia, unspecified; Z79.4 Long term (current) use of insulin; Z87.891 Personal history of nicotine dependence

== ENCOUNTER → 2017-09-08 14:50 | Emergency (ER) | payer BC ==
[2017-09-08 14:50] VITALS: BMI 36.8
== END | disposition left against medical advice (07) ==
LOC: C.ER 14:50
DX: Z02.89 Encounter for other administrative examinations (principal); Z00.00 Encounter for general adult medical examination without abnormal findings

== ENCOUNTER 2017-09-09 08:45 | Inpatient (IN) | payer BC ==
[2017-09-09 08:45] VITALS: BMI 36.8
--- NOTE | 2017-09-09 09:32 | C.PDOC ---
History Of Present Illness The patient is requiring dialysis, uremic, and has failed dialysis access. Patient also complains of mild headache. Denies chest pain, SOB, abdominal pain , fever, travel. Time Seen by Provider: 09/09/17 09:13 Chief Complaint (Nursing): Headache Past Medical History - Medical History PMH: Arthritis (l ankle hx orif; toe prob), Diabetes, Fractures (left ankle), HTN, Hypercholesterolemia, Multiple Sclerosis, Peripheral Edema (not at present) , End Stage Renal Disease, Chronic Kidney Disease - [facility] (09/01/17) INSERTION OF INFUSION DEV INTO SUP VENA CAVA, PERC APPROACH (09/01/17) Family History: States: Unknown Family Hx - Social History Hx Alcohol Use: No Hx Substance Use: No - Immunization History Hx Tetanus Toxoid Vaccination: No Hx Influenza Vaccination: No Hx Pneumococcal Vaccination: No Review Of Systems Except As Marked, All Systems Reviewed And Found Negative. Physical Exam - Physical Exam Appears: Non-toxic, No Acute Distress Skin: Normal Color, Warm, No Rash Head: Atraumatic, Normacephalic Eye(s): bilateral: Normal Inspection Oral Mucosa: Moist Neck: Normal ROM, Supple Chest: Symmetrical, No Tenderness Cardiovascular: Rhythm Regular Respiratory: Normal Breath Sounds, No Rales, No Rhonchi, No Wheezing Gastrointestinal/Abdominal: Soft, No Tenderness Back: Normal Inspection, No CVA Tenderness Extremity: Normal ROM, No Swelling Neurological/Psych: Oriented x3, Normal Speech Gait: Steady ED Course And Treatment O2 Sat by Pulse Oximetry: 96 (ON ra) Pulse Ox Interpretation: Normal Medical Decision Making Medical Decision Making: The case was discussed with Dr. Shetty who agrees to perform surgery. Disposition - Disposition Disposition: HOSPITALIZED Disposition Time: 09:42 Condition: STABLE Forms: [facility] ([place]) - Clinical Impression Clinical Impression: End stage renal disease, Failure of hemodialysis access, Headache
[2017-09-09 10:00] LABS: INR 0.9; PROTHROMBIN TIME 9.6 SECONDS (9.7-12.2)
[2017-09-09 10:02] LABS: BASO % 0.5 % (0.0-2.0); EOS # 0.1 K/uL (0.0-0.7); EOS % 1.7 % (0.0-4.0); HEMOGLOBIN 9.8 g/dL (11.0-16.0); LYMPH # 2.8 K/uL (1.0-4.3); LYMPH % 32.4 % (20.0-40.0); MEAN CELL VOLUME 85.3 fL (81.0-99.0); MEAN CORPUSCULAR HEMOGLOBIN 29.2 pg (27.0-31.0); MEAN CORPUSCULAR HGB CONC 34.3 g/dL (33.0-37.0); MEAN PLATELET VOLUME 7.8 fL (7.2-11.7); MONO # 0.7 K/uL (0.0-0.8); MONO % 8.1 % (0.0-10.0); NEUT # 4.9 K/uL (1.8-7.0); NEUT % 57.3 % (50.0-75.0); RBC 3.34 Mil/uL (3.80-5.20); RED CELL DISTRIBUTION WIDTH 13.3 % (11.5-14.5); WHITE BLOOD COUNT 8.5 K/uL (4.8-10.8)
[2017-09-09 10:11] LABS: ALB/GLOB RATIO 1.3 (1.0-2.1); CALCIUM 7.6 mg/dl (8.6-10.4)
--- NOTE | 2017-09-09 11:41 | CP.PCM.CON ---
History of Present Illness - History of Present Illness History of Present Illness: 52 y/o female admitted for AV graft surgery Recently started on HD but AV F failed Seen 09/08 at outpt unit- now needs AV access repeat surgery. PMH: ESRD DM 2 DIABETIC NEPHROPATHY HTN MULTIPLE SCLEROSIS PSH: AV GRAFT Review of Systems - Constitutional Constitutional: Fatigue, Weakness - EENT Eyes: absent: As Per HPI, Blind Spots, Blurred Vision, Change in Vision, Decreased Night Vision, Diplopia, Discharge, Dry Eye, Exophthalmos, Floaters, Irritation, Itchy Eyes, Loss of Peripheral Vision, Pain, Photophobia, Requires Corrective Lenses, Sees Flashes, Spots in Vision, Tunnel Vision, Other Visual Disturbances, Loss of Vision, Other Nose/Mouth/Throat: absent: As Per HPI, Epistaxis, Nasal Congestion, Nasal Discharge, Nasal Obstruction, Nasal Trauma, Nose Pain, Post Nasal Drip, Sinus Pain, Sinus Pressure, Bleeding Gums, Change in Voice, Dental Pain, Dry Mouth, Dysphagia, Halitosis, Hoarsness, Lip Swelling, Mouth Lesions, Mouth Pain, Odynophagia, Sore Throat, Throat Swelling, Tongue Swelling, Facial Pain, Neck Pain, Neck Mass, Other - Cardiovascular Cardiovascular: Dyspnea on Exertion, Edema - Respiratory Respiratory: Dyspnea on Exertion - Gastrointestinal Gastrointestinal: absent: As Per HPI, Abdominal Pain, Belching, Bloating, Change in Bowel Habits, Change in Stool Character, Coffee Ground Emesis, Constipation, Cramping, Diarrhea, Dyspepsia, Dysphagia, Early Satiety, Excessive Flatus, Fecal Incontinence, Heartburn, Hematemesis, Hematochezia, Loose Stools, Melena, Nausea, Odynophagia, Temesmus, Vomiting, Other - Genitourinary Genitourinary: As Per HPI - Musculoskeletal Musculoskeletal: Muscle Cramps, Muscle Weakness, Myalgias - Integumentary Integumentary: absent: As Per HPI, Acne, Alopecia, Bleeding Lesions, Change in Hair, Change in Nails, Change in Pigmentation, Changing Lesions, Dry Skin, Erythema, Furuncle, Hirsutism, Lesions, New Lesions, Non-Healing Lesions, Photosensitivity, Pruritus, Rash, Skin Pain, Skin Ulcer, Sores, Striae, Swelling , Unusual Bruising, Wounds, Jaundice, Other - Neurological Neurological: Abnormal Gait, Weakness Past Patient History - Past Medical History & Family History Past Medical History?: Yes Past Family History: Reviewed and not pertinent - Past Social History Smoking Status: Former Smoker Chewing Tobacco Use: No Cigar Use: No Alcohol: None Drugs: Denies Home Situation {Lives}: With Family - CARDIAC Hx Hypercholesterolemia: Yes Hx Hypertension: Yes Hx Peripheral Edema: Yes (not at present) - PULMONARY Hx Respiratory Disorders: No - NEUROLOGICAL Hx Multiple Sclerosis: Yes - HEENT Hx HEENT Problems: No - RENAL Hx Chronic Kidney Disease: Yes - ENDOCRINE/METABOLIC Hx Endocrine Disorders: Yes Hx Diabetes Mellitus Type 2: Yes - HEMATOLOGICAL/ONCOLOGICAL Hx Blood Disorders: Yes - INTEGUMENTARY Hx Dermatological Problems: No - MUSCULOSKELETAL/RHEUMATOLOGICAL Hx Arthritis: Yes (l ankle hx orif; toe prob) Hx Fractures: Yes (left ankle) - GASTROINTESTINAL Hx Gastrointestinal Disorders: (constipation) - GENITOURINARY/GYNECOLOGICAL Hx Genitourinary Disorders: No - PSYCHIATRIC Hx Substance Use: No - SURGICAL HISTORY Hx Surgeries: Yes Hx Section: Yes (x2) Hx Open Reduction Internal Fixation: Yes (left ankle) Other/Comment: av shunt insertion 06/17/17 - ANESTHESIA Hx Anesthesia: Yes Hx Anesthesia Reactions: No Hx Malignant Hyperthermia: No Meds Allergies/Adverse Reactions: Allergies Allergy/AdvReac Type Severity Reaction Status Date / Time No Known Allergies Allergy Verified 09/01/17 09:25 Physical Exam - Constitutional Appears: No Acute Distress, Chronically Ill - Head Exam Head Exam: ATRAUMATIC, NORMAL INSPECTION - Eye Exam Eye Exam: EOMI, Normal appearance - Neck Exam Neck exam: Positive for: Full Rom. Negative for: Tenderness - Respiratory Exam Respiratory Exam: Clear to Auscultation Bilateral, NORMAL BREATHING PATTERN - Cardiovascular Exam Cardiovascular Exam: REGULAR RHYTHM, +S1 - GI/Abdominal Exam GI & Abdominal Exam: Soft. absent: Tenderness - Extremities Exam Extremities exam: Positive for: normal inspection. Negative for: tenderness - Neurological Exam Neurological exam: CN II-XII Intact, Oriented x3 - Skin Skin Exam: Dry, Warm Results - Vital Signs Recent Vital Signs: Last Vital Signs Temp 98.6 F 09/09/17 09:15 Pulse 73 09/09/17 09:15 Resp 18 09/09/17 09:15 BP 130/72 09/09/17 09:15 Pulse Ox 96 09/09/17 09:44 - Labs Result Diagrams: 09/09/17 09:45 09/09/17 09:45 Labs: Laboratory Results - last 24 hr 09/09/17 09/09/17 09/09/17 09:45 09:45 09:45 WBC 8.5 RBC 3.34 L Hgb 9.8 L Hct 28.5 L MCV 85.3 MCH 29.2 MCHC 34.3 RDW 13.3 Plt Count 320 MPV 7.8 Neut % (Auto) 57.3 Lymph % (Auto) 32.4 Johnston % (Auto) 8.1 Eos % (Auto) 1.7 Baso % (Auto) 0.5 Neut # (Auto) 4.9 Lymph # (Auto) 2.8 Johnston # (Auto) 0.7 Eos # (Auto) 0.1 Baso # (Auto) 0.0 PT 9.6 L INR 0.9 APTT 28 Sodium 141 Potassium 3.8 Chloride 96 L Carbon Dioxide 34 H Anion Gap 15 BUN 42 H Creatinine 4.1 H Est GFR ( Amer) 14 Est GFR (Non-Af Amer) 12 Random Glucose 227 H Calcium 7.6 L Total Bilirubin 0.6 AST 24 ALT 26 Alkaline Phosphatase 161 H D Total Protein 7.1 Albumin 4.0 Globulin 3.1 Albumin/Globulin Ratio 1.3 Assessment & Plan (1) Type 2 diabetes mellitus with diabetic nephropathy Status: Acute (2) Multiple sclerosis Status: Acute (3) Failure of surgically constructed arteriovenous fistula Status: Acute (4) End stage renal disease Status: Acute - Assessment and Plan (Free Text) Plan: Will need new AV graft Dialysis MWF follow up [email or web address]
[2017-09-09] MEDS ORDERED: HEPARIN-NS 5,000 UNITS/500 ML 5,000 UNIT/500 ML BAG IV ONE ×2 (13:18→16:05)
[2017-09-09] MEDS ORDERED: Midazolam 2 MG/2 ML VIAL ONE (14:10)
[2017-09-09] MEDS ORDERED: Propofol 10 mg/ml Inj (20 ML) ONE (14:10)
[2017-09-09] MEDS ORDERED: ceFAZolin IV 2 gm in Dextrose 2 GM/50 ML BAG IVPB ONE (14:10)
[2017-09-09] MEDS ORDERED: HYDROmorphone 0.5 mg/0.5 ml ISec IVP PRN (17:12)
[2017-09-09] MEDS ORDERED: Oxycodone/Acetaminophen 5/325 mg Tab PO PRN (17:35)
[2017-09-09] MEDS ORDERED: HYDROmorphone 0.5 mg/0.5 ml ISec ONE (18:08)
[2017-09-09] MEDS ORDERED: HYDROmorphone 0.5 mg/0.5 ml ISec IVP ONE (18:09)
[2017-09-09] MEDS ORDERED: INSULIN LISPRO MIX SC SCH (18:15)
[2017-09-09] MEDS ORDERED: ROSUVASTATIN 20MG PO SCH (22:00)
[2017-09-09] MEDS: ceFAZolin 1 gm FROZEN Premix 1 GM/50 ML ML IVPB SCH (22:16)
[2017-09-09] MEDS: Omega-3-Acid Ethyl Esters 1 GM Cap PO SCH (22:17)
[2017-09-09] MEDS: Morphine 4 MG/ML VIAL IV PRN (22:21)
--- NOTE | 2017-09-10 04:41 | OP ---
PROCEDURE DATE: 09/09/2017 PREOPERATIVE DIAGNOSIS: Chronic renal failure. POSTOPERATIVE DIAGNOSIS: Chronic renal failure. PROCEDURE: Placement of arteriovenous graft, left forearm. SURGEON: Ceferino Shetty MD TYPE OF ANESTHESIA: General. ESTIMATED BLOOD LOSS: 100 mL. POSTOP CONDITION: Stable. INDICATIONS FOR SURGERY: This is a 52-year-old female with end stage renal disease. She is status post a left arm arterial basilic vein transformation which worked for 6 weeks, however, upon her first dialysis, it thrombosed. She subsequently was taken back to the OR now for placement of a left forearm arteriovenous graft. GROSS FINDINGS: The cephalic vein in the antecubital fossa was of adequate size for grafting, and the radial artery was also of adequate size for grafting and radiocephalic arteriovenous shunt was performed using a 4- to 6-mm [place] graft. DESCRIPTION OF PROCEDURE: The patient was taken to the operating room. General anesthesia administered, and the left forearm was prepped and draped. Transverse incision was made just distal to the antecubital fossa and the cephalic vein was dissected free along with its branches and looped with vessel loops and the larger branches were looped with heavy silk. A longitudinal incision was made in the left wrist. Radial artery was dissected free and also looped. Larger branches were ligated with silk. Heparin was administered and the arterial anastomosis was performed using CV7 [place] suture. At the conclusion, there was a couple of bleeding areas which were controlled with CV7 [place] suture ligatures. Once it was adequate with hemostasis, graft was tunneled into the venous wound and the arterio-cephalic anastomosis was accomplished again using CV7 [place] suture, but there was a good thrill in the graft when tested via Doppler The wrist wound flaps were raised in the left wrist to prevent compression of the wrist, and the wounds were closed with the subcuticular Vicryl and skin clips. The patient tolerated the procedure well, returned to the recovery room in stable condition. Ceferino Shetty MD
[2017-09-10] MEDS: ceFAZolin 1 gm FROZEN Premix 1 GM/50 ML ML IVPB SCH ×2 (05:45→14:01)
[2017-09-10] MEDS: Morphine 4 MG/ML VIAL IV PRN ×2 (05:55→13:40)
[2017-09-10 08:48] VITALS: O2SAT 96
--- NOTE | 2017-09-10 09:44 | CP.PCM.PN ---
Subjective - Date & Time of Evaluation Date of Evaluation: 09/10/17 Time of Evaluation: 09:41 - Subjective Subjective: s/p new AV graft insertion Unclear if there is bruit c/o constipation c/o decreased UO BP controlled due for dialysis now Objective - Vital Signs/Intake and Output Vital Signs (last 24 hours): Temp Pulse Resp BP Pulse Ox 98.6 F 73 21 131/65 96 09/10/17 07:00 09/10/17 07:00 09/10/17 07:00 09/10/17 07:00 09/10/17 07:00 Intake and Output: 09/10/17 09/10/17 06:59 18:59 Intake Total 565 Balance 565 - Medications Medications: Current Medications Amlodipine Besylate (Norvasc) 5 mg PO DAILY [facility] Aspirin (Aspirin Chewable) 81 mg PO DAILY [facility] Calcitriol (Rocaltrol) 0.25 mcg PO DAILY [facility] Carvedilol (Coreg) 25 mg PO BID [facility] Last Admin: 09/09/17 22:17 Dose: 25 mg Furosemide (Lasix) 40 mg PO BID [facility] Last Admin: 09/09/17 22:17 Dose: 40 mg Glipizide (Glucotrol) 10 mg PO BID [facility] Last Admin: 09/09/17 22:17 Dose: 10 mg Home Med (Cu/Se/Vit A/Vit C/Vit E/Zinc [Ocuvite]) 1 tab PO DAILY [facility] Home Med (Insulin Lispro Mix 75/25 [Humalog Mix 75/25]) 60 units SC BID [facility] Home Med (Vitamin B Complex Vit C No.4 [Super B Complex]) 150 mg PO DAILY [facility] Cefazolin Sodium (Ancef) 1 gm in 50 mls @ 100 mls/hr IVPB Q8H [facility] PRN Reason: Protocol Last Admin: 09/10/17 05:45 Dose: 100 mls/hr Lactulose (Enulose) 20 gm PO ONCE ONE Stop: 09/10/17 09:40 Morphine Sulfate (Morphine) 4 mg IV Q6 PRN PRN Reason: pain Last Admin: 09/10/17 05:55 Dose: 4 mg Multivitamins/Minerals (Therapeutic-M Tab) 1 tab PO DAILY [facility] Olyfy-5-Ledw Ethyl Esters (Lovaza) 1 gm PO QID [facility] Last Admin: 07/03/18 22:17 Dose: 1 gm Oxycodone/Acetaminophen (Percocet 5/325 Mg Tab) 2 tab PO Q4H PRN PRN Reason: pain 1-8 Stop: 09/12/17 17:36 Pneumococcal Polyvalent Vaccine (Pneumovax 23 Vaccine) 0.5 ml IM .ONCE ONE Stop: 09/10/17 10:01 Rosuvastatin Calcium (Crestor) 20 mg PO HS [facility] Last Admin: 09/09/17 22:17 Dose: 20 mg - Labs Labs: 09/09/17 09:45 09/09/17 09:45 PT 9.6 SECONDS (9.7-12.2) L 09/09/17 09:45 INR 0.9 09/09/17 09:45 APTT 28 SECONDS (21-34) 09/09/17 09:45 - Constitutional Appears: No Acute Distress, Chronically Ill - Head Exam Head Exam: ATRAUMATIC, NORMAL INSPECTION - Eye Exam Eye Exam: EOMI, Normal appearance - Neck Exam Neck Exam: Normal Inspection. absent: Tenderness - Respiratory Exam Respiratory Exam: Clear to Ausculation Bilateral, NORMAL BREATHING PATTERN - Cardiovascular Exam Cardiovascular Exam: REGULAR RHYTHM, +S1 - GI/Abdominal Exam GI & Abdominal Exam: Soft. absent: Tenderness - Extremities Exam Extremities Exam: Normal Inspection. absent: Tenderness - Neurological Exam Neurological Exam: Awake, CN II-XII Intact - Skin Skin Exam: Dry, Warm Assessment and Plan (1) Type 2 diabetes mellitus with diabetic nephropathy Status: Acute (2) Multiple sclerosis Status: Acute (3) Failure of surgically constructed arteriovenous fistula Status: Acute (4) End stage renal disease Status: Acute - Assessment and Plan (Free Text) Plan: dialysis now stop ca acetate, rx lactulose for constipation consider straight hernandes cath if no UO same other meds surgical follow up AV graft
[2017-09-10] MEDS ORDERED: Pneumococcal 23-Valent Vaccine IM ONE (10:00)
[2017-09-10] MEDS ORDERED: VITAMIN B COMPLEX VIT C NO 4 150 MG PO SCH (10:00)
[2017-09-10] MEDS ORDERED: VIT E PO SCH (10:00)
[2017-09-10] MEDS ORDERED: VIT A PO SCH (10:00)
[2017-09-10] MEDS ORDERED: VIT C PO SCH (10:00)
[2017-09-10] MEDS ORDERED: [UNRECOGNIZED DRUG - OTHER] PO SCH (10:00)
[2017-09-10] MEDS ORDERED: ZINC PO SCH (10:00)
[2017-09-10] MEDS: Omega-3-Acid Ethyl Esters 1 GM Cap PO SCH ×2 (10:38→13:50)
[2017-09-10] MEDS: Multivitamin With Minerals Tab PO SCH ×2 (10:38→13:50)
--- NOTE | 2017-09-10 11:47 | CP.PCM.CON ---
History of Present Illness - History of Present Illness History of Present Illness: COMPREHENSIVE HISTORY & PHYSICAL EXAM HPI Patient was admitted for reinsertion of AV shunt for dialysis. Patient had a shunt in the right arm which got thrombosed on first dialysis subsequently patient had permacath and was getting dialysis through the catheter. Yesterday patient had another right forearm AV shunt placed. PAST HIST. Patient has a history of diabetic, diabetic nephropathy with chronic renal failure on hemodialysis history of hypertension. PERSONAL HIST: Smoking. N Alcohol. N Allergy N Travel_- . FAMILY HIST : ROS : Constitutional: Negative for weight change, chills, night sweats, fatigue and usage of assist device. Eyes: Negative for redness, swelling, itching, discharge, vision changes, blurry vision, double vision, glaucoma, cataracts, Ears: Negative for hearing loss, ringing, , tinnitus, vertigo Nose: Negative for rhinorrhea, stuffiness, sniffing, itching, postnasal drip, discoloration, nasal congestion and epistaxis. Throat: Negative for throat clearing, sore throat, hoarseness, difficulty swallowing and difficulty speaking. Respiratory: Negative for cough, , sputum production, chest tightness, wheezing, pleuritic chest pain ,daytime somnolence, chronic cough, hemoptysis, snoring at night, Cardiovascular: Negative for chest pain, palpitations, orthopnea, PND, Edema of legs, leg cramps, angina, claudication, , irregular heartbeat, Neurology: Negative for irritability, muscle weakness, numbness and tingling, seizures, tremors, migraines, slurred speech, syncope, memory loss, mood changes , recurrent headaches Gastrointestinal: Negative for difficulty swallowing, diarrhea, constipation, black stools, rectal bleeding, nausea, flatulence, reflux, poor appetite, changes in bowel habits, abdominal pain Genitourinary: Negative for frequent urination, hematuria, discharge, incontinence, urinary retention, frequent UTI, Psychiatric: Negative for depression, anxiety/panic, suicidal tendencies, Musculoskeletal: Negative for swollen joints, back pain, , neck pain, morning stiffness of joints, . Skin: Negative for rash, ulcers, itching, dry skin and pigmented lesions. P/E: Constitutional: Appears stated age and in no apparent distress. Head: Normocephalic. Ears: External ear canals patent without inflammation. Tympanic membranes intact with normal light reflex and landmark. Eyes: Pupils are central, bilaterally equal, symmetrical and reacts to light with normal movements and no icterus or pallor. Nose: External nares are patent. Mucosa is pink Mouth-Throat: Good general appearance and condition. No post-pharyngeal/oropharyngeal erythema and tonsillar hypertrophy. Good dental hygiene. Neck-Lymphatic: Neck is supple with normal ROM, no thyromegaly, lymph nodes or masses. JVD is normal with no carotid bruit. Lungs: Clear to percussion and auscultation with bilateral normal air entry. Cardiovascular: S1 and S2 are normal with no murmurs, gallops and rub. GI Exam: No hepatomegaly. Abdomen is soft and non-tender. No Organomegaly , masses or hernias are evident and bowel sounds are normal and active. Neurology: Higher function and all cranial nerves intact, with no gross motor or sensory deficit. Superficial and deep reflexes are normal with downwards planters. No cerebellar deficit with normal gait. Musculoskeletal: No tender spots with normal curvature of the spine with no swelling or restricted ROM of the small and large joints. Left forearm surgical wound with bandages Extremities: Homans sign absent. Intact pulses with no pitting edema, calf tenderness or skin color changes. Skin: No rash, eruptions or abnormal skin pigmentation LAB/RADIOLOGY: ASSESMENT : Status post left forearm AV shunt redo. Thrombosed left arm AV shunt Diabetic nephropathy with chronic renal failure on hemodialysis through permacath. Hypertension PLAN: Continue postop care as outlined by surgery. Continue Accu-Cheks and monitor sugar and blood pressure. Past Patient History - Past Medical History & Family History Past Medical History?: Yes - Past Social History Smoking Status: Former Smoker - CARDIAC Hx Hypercholesterolemia: Yes Hx Hypertension: Yes Hx Peripheral Edema: Yes (not at present) - PULMONARY Hx Respiratory Disorders: No - NEUROLOGICAL Hx Multiple Sclerosis: Yes - HEENT Hx HEENT Problems: No - RENAL Hx Chronic Kidney Disease: Yes Hx Dialysis: Yes Type of Dialysis Access: right chest wall permacath Date of Last Dialysis Treatment: 09/08/17 Hx Renal Failure: Yes - ENDOCRINE/METABOLIC Hx Endocrine Disorders: Yes Hx Diabetes Mellitus Type 2: Yes - HEMATOLOGICAL/ONCOLOGICAL Hx Blood Disorders: Yes - INTEGUMENTARY Hx Dermatological Problems: No - MUSCULOSKELETAL/RHEUMATOLOGICAL Hx Arthritis: Yes (l ankle hx orif; toe prob) Hx Falls: No Hx Fractures: Yes (left ankle) - GASTROINTESTINAL Hx Gastrointestinal Disorders: (constipation) - GENITOURINARY/GYNECOLOGICAL Hx Genitourinary Disorders: No - PSYCHIATRIC Hx Substance Use: No - SURGICAL HISTORY Hx Surgeries: Yes Hx Section: Yes (x2) Hx Open Reduction Internal Fixation: Yes (left ankle) Other/Comment: av shunt insertion 06/17/17 - ANESTHESIA Hx Anesthesia: Yes Hx Anesthesia Reactions: No Hx Malignant Hyperthermia: No Has any member of the family had a problem w/ anesthesia?: No Meds Allergies/Adverse Reactions: Allergies Allergy/AdvReac Type Severity Reaction Status Date / Time No Known Allergies Allergy Verified 09/01/17 09:25 - Medications Medications: Current Medications Amlodipine Besylate (Norvasc) 5 mg PO DAILY [facility] Last Admin: 09/10/17 10:38 Dose: Not Given Aspirin (Aspirin Chewable) 81 mg PO DAILY [facility] Last Admin: 09/10/17 10:35 Dose: Not Given Calcitriol (Rocaltrol) 0.25 mcg PO DAILY [facility] Last Admin: 09/10/17 10:38 Dose: Not Given Carvedilol (Coreg) 25 mg PO BID [facility] Last Admin: 09/10/17 10:35 Dose: Not Given Furosemide (Lasix) 40 mg PO BID [facility] Last Admin: 09/10/17 10:37 Dose: Not Given Glipizide (Glucotrol) 10 mg PO BID [facility] Last Admin: 09/10/17 10:37 Dose: Not Given Home Med (Cu/Se/Vit A/Vit C/Vit E/Zinc [Ocuvite]) 1 tab PO DAILY [facility] Home Med (Insulin Lispro Mix 75/25 [Humalog Mix 75/25]) 60 units SC BID [facility] Home Med (Vitamin B Complex Vit C No.4 [Super B Complex]) 150 mg PO DAILY [facility] Cefazolin Sodium (Ancef) 1 gm in 50 mls @ 100 mls/hr IVPB Q8H [facility] PRN Reason: Protocol Last Admin: 09/10/17 05:45 Dose: 100 mls/hr Morphine Sulfate (Morphine) 4 mg IV Q6 PRN PRN Reason: pain Last Admin: 09/10/17 05:55 Dose: 4 mg Multivitamins/Minerals (Therapeutic-M Tab) 1 tab PO DAILY [facility] Last Admin: 09/10/17 10:38 Dose: Not Given Lkbzg-4-[id number] Ethyl Esters (Lovaza) 1 gm PO QID [facility] Last Admin: 09/10/17 10:38 Dose: Not Given Oxycodone/Acetaminophen (Percocet 5/325 Mg Tab) 2 tab PO Q4H PRN PRN Reason: pain 1-8 Stop: 09/12/17 17:36 Rosuvastatin Calcium (Crestor) 20 mg PO HS [facility] Last Admin: 09/09/17 22:17 Dose: 20 mg Results - Vital Signs Recent Vital Signs: Last Vital Signs Temp 97.9 F 09/10/17 09:40 Pulse 77 09/10/17 09:40 Resp 20 09/10/17 09:40 BP 123/63 09/10/17 10:25 Pulse Ox 96 09/10/17 09:40 - Labs Result Diagrams: 09/09/17 09:45 09/09/17 09:45 Labs: Laboratory Results - last 24 hr 09/09/17 09/10/17 09/10/17 21:41 06:41 11:04 POC Glucose (mg/dL) 319 H 285 H 203 H
[2017-09-10 13:17] VITALS: TEMP 97.8
[2017-09-10 13:21] VITALS: BP 148/71; PULSE 77
[2017-09-10 13:22] VITALS: RESP 18
== END 2017-09-10 16:32 | disposition home or self-care (01) | DRG 264 ==
LOC: C.ER 08:45 → C.SDS 09:29 → C.3T 19:27
PROVIDERS: ADMIT Surgery; ATTEND Surgery
PROC: 031C0JF Bypass Left Radial Artery to Lower Arm Vein with Synthetic Substitute, Open Approach (ICD-10-PCS; principal; 2017-09-09 17:30)
PROC: 5A1D70Z Performance of Urinary Filtration, Intermittent, Less than 6 Hours Per Day (ICD-10-PCS; 2017-09-10)
DX: T82.868A Thrombosis due to vascular prosthetic devices, implants and grafts, initial encounter (principal); N18.6 End stage renal disease; I12.0 Hypertensive chronic kidney disease with stage 5 chronic kidney disease or end stage renal disease; E11.21 Type 2 diabetes mellitus with diabetic nephropathy; E11.22 Type 2 diabetes mellitus with diabetic chronic kidney disease; G35 Multiple sclerosis; E78.00 Pure hypercholesterolemia, unspecified; K59.00 Constipation, unspecified; Z99.2 Dependence on renal dialysis; Z87.891 Personal history of nicotine dependence